=== PATIENT | female | born 1945 | race Caucasian/White ===

== ENCOUNTER 2016-08-20 08:35 | Emergency (ER) | payer MEDICARE, BC ==
[2016-08-20 08:44] VITALS: BP 149/50
[2016-08-20] MEDS ORDERED: Sodium Chloride 0.9% 10 ML Syringe FLUSH PRN (09:05)
--- NOTE | 2016-08-20 09:24 | EDM.PDOC ---
ED HPI GENERAL MEDICAL PROBLEM - General Chief Complaint: Headache Stated Complaint: Head pain Time Seen by Provider: 08/20/16 08:55 Source of Information: Reports: Patient, RN Notes Reviewed History Limitations: Reports: No Limitations - History of Present Illness INITIAL COMMENTS - FREE TEXT/NARRATIVE: 70 year old female presents to the ED today with chief complaint of 3 day history of sharp, stabbing, constant pain to the left parietal region. The pain came on suddenly about 3 days ago and has been constant with episodes of more severe pain. She states "this is not a headache." She's never experienced this type of pain. She does not typically experience headaches. She says there is a bump to the area and it's tender. She's had no falls and or head trauma. She has no neck pain or neck stiffness. She says she just doesn't feel right. She feels off balance. She has a history of glaucoma but denies any acute changes in her vision. No slurred speech, facial droop, confusion, weakness in extremities, numbness, tingling, difficulty walking. No fever but has felt chilled. No dizziness, lightheadedness or syncope. She does report significant fatigue this past week and has had periods of substernal chest heaviness and mild dyspnea with exertion. She says the chest heaviness is associated with the fatigue. The chest pressure does not radiate. She denies history of heart problems or SD. She has never smoked. No lower extremity edema, redness, or calf pain. No cough or pleuritic type chest pain. Reports nausea but no vomiting , diarrhea, or abdominal pain. Left Head Pain Score (Numeric/FACES): 8 - Related Data Allergies Allergy/AdvReac Type Severity Reaction Status Date / Time Sulfa (Sulfonamide Allergy Swelling Verified 08/20/16 08:44 Antibiotics) Home Meds: Home Meds ClonazePAM [KlonoPIN] 0.5 mg PO QAM 05/21/15 [History] DULoxetine HCl [Cymbalta] 120 mg PO DAILY 05/21/15 [History] Multivits-Min/Iron/FA/Lutein [Centrum Silver Women Tablet] 1 tab PO DAILY [History] QUEtiapine Fumarate [Quetiapine Fumarate] 100 mg PO BID 05/21/15 [History] ClonazePAM [KlonoPIN] 1 mg PO BEDTIME 08/13/15 [History] Magnesium Oxide 400 mg PO DAILY #60 tablet 09/22/15 [Rx] Aspirin [Halfprin] 81 mg PO DAILY 03/20/16 [History] Omeprazole Magnesium [Prilosec Otc] 40 mg PO DAILY 03/20/16 [History] Cholecalciferol (Vitamin D3) [Vitamin D3] 1,000 unit PO DAILY 08/20/16 [History] Cyanocobalamin/FA/Pyridoxine [Virt-Jason Tablet] 1 each PO DAILY 08/20/16 [ History] Docusate Sodium [Col-Rite] 250 mg PO DAILY 08/20/16 [History] Past Medical History HEENT History: Reports: Allergic Rhinitis, Glaucoma, Impaired Vision Other HEENT History: wears glasses, dentures Cardiovascular History: Reports: Hypertension, SOB on Exertion Respiratory History: Reports: None, Other (See Below) Other Respiratory History: dypsnea Gastrointestinal History: Reports: GERD, PUD, Other (See Below) Other Gastrointestinal History: GI ulcers Genitourinary History: Reports: Other (See Below) Other Genitourinary History: incomplete emptying of bladder, nocturia, urgency, UTI 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: Other (See Below) Other OB/BYN History: R breast biopsy, hot flashes Musculoskeletal History: Reports: Back Pain, Chronic, Other (See Below) Other Musculoskeletal History: rotator cuff repair, L leg pain, knee pain, hip pain, brachiplasty, arthritis, gluteal tendinopathy, trochanteric bursitis, osteopenia, back surgery with rods Neurological History: Reports: Headaches, Chronic Psychiatric History: Reports: Anxiety, Depression, Panic Attack Other Psychiatric History: fatigue Endocrine/Metabolic History: Reports: Diabetes, Type II Other Endocrine/Metabolic History: resolved with gastric bypass Hematologic History: Reports: None, Blood Transfusion(s) Immunologic History: Reports: None Oncologic (Cancer) History: Reports: None Dermatologic History: Reports: None - Infectious Disease History Infectious Disease History: Reports: None - Past Surgical History GI Surgical History: Reports: Appendectomy, Bariatric Procedure, Cholecystectomy Female Surgical History: Reports: Breast Biopsy, Hysterectomy Neurological Surgical History: Reports: Lumbar Spine Musculoskeletal Surgical History: Reports: Knee Replacement, Shoulder Surgery Social & Family History - Family History Family Medical History: Noncontributory Cardiac: Reports: Bypass Respiratory: Reports: Sleep Apnea Psychiatric: Reports: Depression Endocrine/Metabolic: Reports: Diabetes, type II Oncologic: Reports: Bone, Colon, Lung, Ovarian, Other (See Below) Other Oncologic Family History: mother had colon, ovarian and and bone throat cancer; father had bone cancer and lung - Tobacco Use Smoking Status *Q: Never Smoker Second Hand Smoke Exposure: No - Caffeine Use Caffeine Use: Reports: None - Recreational Drug Use Recreational Drug Use: No - Living Situation & Occupation Living situation: Reports: , with Spouse Occupation: Retired ED ROS GENERAL - Review of Systems Review Of Systems: See Below Constitutional: Reports: Chills, Fatigue. Denies: Fever HEENT: Reports: No Symptoms. Denies: Vertigo, Vision Change Respiratory: Reports: Shortness of Breath (with exertion). Denies: Pleuritic Chest Pain, Cough Cardiovascular: Reports: Chest Pain, Dyspnea on Exertion. Denies: Edema, Lightheadedness, Palpitations, Syncope Endocrine: Reports: Fatigue GI/Abdominal: Reports: Nausea. Denies: Abdominal Pain, Diarrhea, Vomiting : Reports: Other ("strong urine"). Denies: Dysuria, Flank Pain, Frequency, Hematuria Neurological: Reports: Headache. Denies: Confusion, Dizziness, Numbness, Paresthesia, Syncope, Tingling, Trouble Speaking, Difficulty Walking, Weakness - Physical Exam Exam: See Below Exam Limited By: No Limitations General Appearance: Alert, WD/WN, No Apparent Distress, Anxious Eye Exam: Bilateral Eye: EOMI, Normal Inspection, PERRL Ears: Normal External Exam, Normal Canal, Hearing Grossly Normal, Normal TMs Nose: Nasal Flaring Throat/Mouth: Normal Oropharynx Head Exam: Atraumatic, Normocephalic, Other (The patient reports a bump to the left parietal region. There is no bump, swelling, bruising, or lesion noted on exam. The "bump" she is referring to is normal anatomy. There is no tenderness or palpable pulsation to the left baptism.) Neck: Normal Inspection, Supple, Non-Tender, Full Range of Motion, Other (no nuchal rigidity ). No: Tender Midline Respiratory/Chest: No Respiratory Distress, Lungs Clear, Normal Breath Sounds, No Accessory Muscle Use, Chest Non-Tender Cardiovascular: Normal Peripheral Pulses, Regular Rate, Rhythm, No Murmur GI/Abdominal: Normal Bowel Sounds, Soft, Non-Tender Neuro Exam (Abbreviated): Alert, Oriented, CN II-XII Intact, Normal Cognition, Normal Gait, No Motor/Sensory Deficits, Other (cerebellar testing is intact ) Extremities: Normal Inspection, Normal Range of Motion, Non-Tender, No Pedal Edema, Other (no unilateral leg swelling, erythema, or tenderness to the calf). No: Thor's Sign, Leg Pain Psychiatric: Anxious Skin Exam: Warm, Dry, Intact EKG INTERPRETATION EKG Date: 08/20/16 Time: 09:18 Rhythm: NSR Rate (beats/min): 77 [place]: normal P-wave: present QRS: normal ST-T: normal QT: normal EKG Interpretation Comments: EKG reveals NSR 77 bpm, no acute ischemic changes. EKG read by Dr. Balbuena. Course - Vital Signs Last Recorded V/S: Last Vital Signs Temp 96.1 F 08/20/16 08:41 Pulse 95 08/20/16 08:41 Resp 16 08/20/16 08:41 BP 149/50 H 08/20/16 08:41 Pulse Ox 97 08/20/16 08:41 - Orders/Labs/Meds Orders: Active Orders 24 hr Category Date Time Status Cardiac Monitoring [RC] . DIRECTED Care 08/20/16 09:06 Active EKG 12 Lead [EKG Documentation Completion] [RC] STAT Care 08/20/16 09:06 Active Peripheral IV Care [RC] . DIRECTED Care 08/20/16 09:07 Active CXR [Chest 1V Frontal] [CR] Stat Exams 08/20/16 09:06 Taken Peripheral IV Insertion Adult [OM.PC] Stat Oth 08/20/16 09:06 Ordered Labs: Laboratory Tests 08/20/16 08/20/16 08/20/16 Range/Units 09:15 09:15 10:18 WBC 5.62 (3.98-10.04) K/mm3 RBC 4.19 (3.98-5.22) M/mm3 Hgb 10.7 L (11.2-15.7) gm/L Hct 34.7 (34.1-44.9) % MCV 82.8 (79.4-94.8) fl MCH 25.5 L (25.6-32.2) pg MCHC 30.8 L (32.2-35.5) g/dl RDW Std Deviation 48.5 H (36.4-46.3) fL Plt Count 285 (182-369) K/mm3 MPV 10.3 (9.4-12.3) fl Neut % (Auto) 45.7 (34.0-71.1) % Lymph % (Auto) 41.1 (19.3-51.7) % [place] % (Auto) 10.1 (4.7-12.5) % Eos % (Auto) 2.5 (0.7-5.8) Baso % (Auto) 0.4 (0.1-1.2) % Neut # (Auto) 2.57 (1.56-6.13) K/mm3 Lymph # (Auto) 2.31 (1.18-3.74) K/mm3 [place] # (Auto) 0.57 H (0.24-0.36) K/mm3 Eos # (Auto) 0.14 (0.04-0.36) K/mm3 Baso # (Auto) 0.02 (0.01-0.08) K/mm3 Sodium 143 (136-145) mEq/L Potassium 4.7 (3.5-5.1) mEq/L Chloride 108 H (98-107) mEq/L Carbon Dioxide 26 (21-32) mEq/L Anion Gap 13.7 (5-15) BUN 18 (7-18) mg/dL Creatinine 0.9 (0.55-1.02) mg/dL Est Cr Clr Drug Dosing 44.69 mL/min Estimated GFR (MDRD) > 60 (>60) mL/min BUN/Creatinine Ratio 20.0 H (14-18) Glucose 94 (83-115) mg/dL Calcium 9.0 (8.5-10.1) mg/dL Total Bilirubin 0.2 (0.2-1.0) mg/dL AST 25 (15-37) U/L ALT 26 (14-59) U/L Alkaline Phosphatase 76 (46-116) U/L Troponin I < 0.017 (0.00-0.056) ng/mL C-Reactive Protein < 0.2 (<1.0) mg/dL Total Protein 6.8 (6.4-8.2) g/dl Albumin 3.6 (3.4-5.0) g/dl Globulin 3.2 gm/dL Albumin/Globulin Ratio 1.1 (1-2) Urine Color Light yellow (Yellow) Urine Appearance Clear (Clear) Urine pH 6.0 (5.0-8.0) Ur Specific [place] 1.015 (1.005-1.030) Urine Protein Negative (Negative) Urine Glucose (UA) Negative (Negative) Urine Ketones Negative (Negative) Urine Occult Blood Negative (Negative) Urine Nitrite Negative (Negative) Urine Bilirubin Negative (Negative) Urine Urobilinogen 0.2 (0.2-1.0) Ur Leukocyte Esterase Negative (Negative) Urine RBC Not seen (0-5) /hpf Urine WBC 0-5 (0-5) /hpf Ur Epithelial Cells Not Reportable Ur Squamous Epith Cells 0-5 (0-5) /hpf Urine Bacteria Not seen (FEW) /hpf Urine Mucus Not seen (FEW) /hpf Meds: Medications Discontinued Medications Generic Name Dose Route Start Last Admin Trade Name Freq PRN Reason Stop Dose Admin Sodium Chloride 10 ml 08/20/16 09:05 08/20/16 09:19 Saline Flush FLUSH 10 ml ASDIRECTED PRN Administration Keep Vein Open - Re-Assessments/Exams Free Text/Narrative Re-Assessment/Exam: The patient's neuro exam today is completely unremarkable. Head CT was read by Dr. Khan and was positive for minimal senescent change. Nothing acute identified. Her history was most concerning for intracranial hemorrhage and this has been ruled out. History and exam findings are not consistent with a diagnosis of temporal arteritis. CBC, CMP, and CRP are normal. She reported intermittent chest heaviness for the past week therefore a cardiac workup was also ordered. 2 view chest x-ray is normal. Mediastinum and heart size are normal. No pulmonary infiltrates or effusions. Troponin is WNL. EKG was also normal. She reported a history of UTIs and noted that here urine was strong in odor. UA was therefore ordered and was negative for infection. Acute causes of her neuro and cardiovascular complaints have been ruled out. On re-examination. The patient's neuro exam remains intact and she is up ambulating around the room in no apparent distress. I palpable her left parietal area again and there was some tenderness but was then absent with repeat palpation of the same area. She has no lesions or swelling to indicate a soft tissue etiology. Patient thoroughly educated on return precautions. Instructed to f/u with Dr. Ta this week for recheck. Departure - Departure Time of Disposition: 10:55 Disposition: Home, Self-Care 01 Condition: good Clinical Impression: Head pain Qualifiers: Headache type: unspecified Headache chronicity pattern: acute headache Intractability: not intractable Qualified Code(s): R51 - Headache - Discharge Information Instructions: General Headache Without Cause Referrals: Dawson Ta MD [Primary Care Provider] - Forms: ED Department Discharge Additional Instructions: Follow-up with Dr. Ta in 2-3 days for recheck Return to ER if pain worsens or if you develop a new symptoms. Return to ER if your chest heaviness or shortness of breath worsens in anyway Warm compresses to the area of pain Tylenol 1000mg every 8 hours as needed for pain - My Orders Last 24 Hours: My Active Orders 08/20/16 09:06 Cardiac Monitoring [RC] . DIRECTED EKG 12 Lead [EKG Documentation Completion] [RC] STAT CXR [Chest 1V Frontal] [CR] Stat Peripheral IV Insertion Adult [OM.PC] Stat 08/20/16 09:07 Peripheral IV Care [RC] . DIRECTED - Assessment/Plan Last 24 Hours: My Active Orders 08/20/16 09:06 Cardiac Monitoring [RC] . DIRECTED EKG 12 Lead [EKG Documentation Completion] [RC] STAT CXR [Chest 1V Frontal] [CR] Stat Peripheral IV Insertion Adult [OM.PC] Stat 08/20/16 09:07 Peripheral IV Care [RC] . DIRECTED
--- NOTE | 2016-08-20 10:11 | CT ---
Head CT Technique: Multiple axial sections through the brain were obtained. Intravenous contrast was not utilized. Comparison: Previous MRI brain of 08/27/12. Findings: Ventricles along with basal cisterns and sulci over the convexities are mildly prominent. Minimal areas of decreased density are noted within the periventricular white matter. This is felt compatible with minimal small vessel ischemic demyelination change. Incidental basal ganglia calcification is noted. No other abnormal parenchymal densities are seen. No evidence of intracranial hemorrhage. No midline shift or mass effect is seen. Bone window settings were reviewed which shows no discrete calvarial abnormality. Visualized sinuses are clear. Minimal atherosclerotic calcification is noted within the carotid siphon. Impression: 1. Minimal senescent change. Nothing acute is identified on noncontrast head CT study. Diagnostic code #2
--- NOTE | 2016-08-21 07:37 | CR ---
Chest: Portable view of the chest was obtained. Comparison: Previous chest x-ray of 09/21/15. Heart size and mediastinum are normal. Lungs are clear. Previous right shoulder surgery is seen. Bony structures are grossly intact. Impression: 1. Incidental findings. Nothing acute is identified on portable chest x-ray. Diagnostic code #2
== END 2016-08-20 11:05 | disposition home or self-care (01) ==
LOC: JD.ED 08:35
DX: R51 Headache (principal); I10 Essential (primary) hypertension; K21.9 Gastro-esophageal reflux disease without esophagitis; F41.9 Anxiety disorder, unspecified; F32.9 Major depressive disorder, single episode, unspecified; Z90.49 Acquired absence of other specified parts of digestive tract; Z88.2 Allergy status to sulfonamides; Z79.899 Other long term (current) drug therapy; Z79.82 Long term (current) use of aspirin; Z90.710 Acquired absence of both cervix and uterus; Z96.659 Presence of unspecified artificial knee joint
CPT/HCPCS: 36415; 70450; 71010; 80053; 81001; 84484; 85025; 86140; 93005; 99285; J7050; 99283

== ENCOUNTER 2017-02-07 05:19 | Emergency (ER) | payer MEDICARE, BC ==
[2017-02-07 05:38] VITALS: BP 123/59
[2017-02-07] MEDS ORDERED: Phenazopyridine 95 MG Tab PO ONE (05:44)
[2017-02-07] MEDS ORDERED: Levofloxacin 250 MG Tab PO ONE (05:44)
--- NOTE | 2017-02-07 05:48 | EDM.PDOC ---
ED HPI GENERAL MEDICAL PROBLEM - General Chief Complaint: Genitourinary Problem Stated Complaint: UTI Time Seen by Provider: 02/07/17 05:43 Source of Information: Reports: Patient, Family (spouse) History Limitations: Reports: No Limitations - History of Present Illness INITIAL COMMENTS - FREE TEXT/NARRATIVE: 71-year-old female attends the ED with acute onset of urinary tract symptoms such as urgency, frequency and dysuria over the last 24 hours. Patient had left total hip replacement by Dr. lauren done at [place] on January 31. She developed urinary retention requiring Mclean catheter during her stay in hospital. Once we was removed once again she could not void on her own and had to have Mclean catheter reintroduced on intermittent basis. Developed urinary tract symptoms yesterday. Note she just got home from the hospital. Feels hot and cold at times. Not able to sleep at all last night. Has not noticed any blood in her urine. She's had no previous genitourinary surgery. Onset: Sudden Onset Date: 02/06/17 Onset Time: 18:00 Duration: Hour(s): Location: Reports: Abdomen (Lower abdomen), Other (Dysuria urgency and frequency ) Quality: Reports: Ache, Burning, Other Severity: Moderate (Dysuria with voiding particularly at end of voiding.) Improves with: Reports: None Worsens with: Reports: None Context: Reports: Other (Recent left total hip replacement complicated by acute urinary retention requiring Mclean catheter will in hospital). 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 (see below) (None.) - Related Data Allergies Allergy/AdvReac Type Severity Reaction Status Date / Time Sulfa (Sulfonamide Allergy Swelling Verified 02/07/17 05:38 Antibiotics) Home Meds: Home Meds DULoxetine HCl [Cymbalta] 120 mg PO BEDTIME 05/21/15 [History] Multivits-Min/Iron/FA/Lutein [Centrum Silver Women Tablet] 1 tab PO DAILY [History] QUEtiapine Fumarate [Quetiapine Fumarate] 100 mg PO BEDTIME 05/21/15 [History] ClonazePAM [KlonoPIN] 1 mg PO BEDTIME 08/13/15 [History] Aspirin [Halfprin] 325 mg PO BID 03/20/16 [History] Cholecalciferol (Vitamin D3) [Vitamin D3] 2,000 unit PO DAILY 08/20/16 [History] Cyanocobalamin/FA/Pyridoxine [Virt-Jason Tablet] 1 each PO DAILY 08/20/16 [ History] Docusate Sodium [Col-Rite] 200 mg PO BID 08/20/16 [History] Ferrous Sulfate [Iron] 1 tab PO TID 02/07/17 [History] Levofloxacin [Levaquin] 500 mg PO Q24H #7 tablet 02/07/17 [Rx] Magnesium Oxide 400 mg PO BID 02/07/17 [History] Phenazopyridine HCl [Pyridium] 100 mg PO Q6H #4 tablet 02/07/17 [Rx] Potassium Chloride [Klor-Con 10] 10 tab PO DAILY 02/07/17 [History] oxyCODONE 1 tab PO Q4HR PRN 02/07/17 [History] Past Medical History HEENT History: Reports: Allergic Rhinitis, Glaucoma, Impaired Vision Other HEENT History: wears glasses, dentures Cardiovascular History: Reports: Hypertension, SOB on Exertion Respiratory History: Reports: None, Other (See Below) Other Respiratory History: dypsnea Gastrointestinal History: Reports: GERD, PUD, Other (See Below) Other Gastrointestinal History: GI ulcers Genitourinary History: Reports: Other (See Below) Other Genitourinary History: incomplete emptying of bladder, nocturia, urgency, UTI 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 [employer] LAYOUT History: Reports: Other (See Below) Other OB/BYN History: R breast biopsy, hot flashes Musculoskeletal History: Reports: Back Pain, Chronic, Other (See Below) Other Musculoskeletal History: rotator cuff repair, L leg pain, knee pain, hip pain, brachiplasty, arthritis, gluteal tendinopathy, trochanteric bursitis, osteopenia, back surgery with rods left total hip replacement January 31 Neurological History: Reports: Headaches, Chronic Psychiatric History: Reports: Anxiety, Depression, Panic Attack Other Psychiatric History: fatigue Endocrine/Metabolic History: Reports: Diabetes, Type II Other Endocrine/Metabolic History: resolved with gastric bypass Hematologic History: Reports: None, Blood Transfusion(s) Immunologic History: Reports: None Oncologic (Cancer) History: Reports: None Dermatologic History: Reports: None - Infectious Disease History Infectious Disease History: Reports: None - Past Surgical History GI Surgical History: Reports: Appendectomy, Bariatric Procedure, Cholecystectomy Female Surgical History: Reports: Breast Biopsy, Hysterectomy Neurological Surgical History: Reports: Lumbar Spine Musculoskeletal Surgical History: Reports: Knee Replacement, Shoulder Surgery Social & Family History - Family History Family Medical History: Noncontributory Cardiac: Reports: Bypass Respiratory: Reports: Sleep Apnea Psychiatric: Reports: Depression Endocrine/Metabolic: Reports: Diabetes, type II Oncologic: Reports: Bone, Colon, Lung, Ovarian, Other (See Below) Other Oncologic Family History: mother had colon, ovarian and and bone throat cancer; father had bone cancer and lung - Tobacco Use Smoking Status *Q: Never Smoker Second Hand Smoke Exposure: No - Caffeine Use Caffeine Use: Reports: None - Recreational Drug Use Recreational Drug Use: No - Living Situation & Occupation Living situation: Reports: , with Spouse Occupation: Retired ED ROS GENERAL - Review of Systems Review Of Systems: See Below Constitutional: Reports: Chills, Malaise, Weakness, Fatigue, Decreased Appetite , Weight Loss. Denies: Fever HEENT: Reports: Glasses Respiratory: Reports: No Symptoms Cardiovascular: Reports: No Symptoms Endocrine: Reports: Fatigue GI/Abdominal: Reports: Abdominal Pain (Mild suprapubic abdominal pressure discomfort.) : Reports: Dysuria, Frequency, Incontinence, Urgency, Urinary Retention ( While in hospital post total hip replacement). Denies: Flank Pain Musculoskeletal: Reports: Joint Pain (Left hip pain is quite severe over the last 24 hours even pain pill doesn't seem to help much.) Skin: Reports: Pallor Neurological: Reports: No Symptoms Psychiatric: Reports: No Symptoms Hematologic/Lymphatic: Reports: No Symptoms Immunologic: Reports: No Symptoms ED EXAM, RENAL/ - Physical Exam Exam: See Below Exam Limited By: No Limitations General Appearance: Alert, WD/WN, Other (Appears tired and slightly pallid.) Eye Exam: Bilateral Eye: Normal Inspection GI/Abdominal: Normal Bowel Sounds, Soft, Non-Tender, No Organomegaly Back Exam: Normal Inspection, Full Range of Motion. No: CVA Tenderness (L), CVA Tenderness (R) Extremities: Other (Left hip is been repaired from a posterior approach. The wound itself looks to be healing satisfactorily with no signs of infection lilliam are still in place.) Neurological: Alert, Oriented, CN II-XII Intact, Normal Cognition Psychiatric: Normal Affect Skin Exam: Warm, Dry, Intact, Pallor (Mild pallor.) Course - Vital Signs Last Recorded V/S: Last Vital Signs Temp 35.9 C 02/07/17 05:28 Pulse 77 02/07/17 05:28 Resp 18 02/07/17 05:28 BP 123/59 L 02/07/17 05:28 Pulse Ox 96 02/07/17 05:28 - Orders/Labs/Meds Labs: Laboratory Tests 02/07/17 Range/Units 05:40 Urine Color Yellow (Yellow) Urine Appearance Clear (Clear) Urine pH 7.0 (5.0-8.0) Ur Specific [place] 1.015 (1.005-1.030) Urine Protein Negative (Negative) Urine Glucose (UA) Negative (Negative) Urine Ketones Negative (Negative) Urine Occult Blood Negative (Negative) Urine Nitrite Negative (Negative) Urine Bilirubin Negative (Negative) Urine Urobilinogen 0.2 (0.2-1.0) Ur Leukocyte Esterase Negative (Negative) Urine RBC Not seen (0-5) /hpf Urine WBC 0-5 (0-5) /hpf Ur Epithelial Cells 0-5 (0-5) /hpf Urine Bacteria Not seen (FEW) /hpf Urine Mucus Not seen (FEW) /hpf Meds: Medications Discontinued Medications Generic Name Dose Route Start Last Admin Trade Name Freq PRN Reason Stop Dose Admin Levofloxacin 500 mg 02/07/17 05:44 02/07/17 05:56 Levaquin PO 02/07/17 05:45 500 mg ONETIME ONE Administration Phenazopyridine HCl 95 mg 02/07/17 05:44 02/07/17 05:56 Urinary Pain Relief PO 02/07/17 05:45 95 mg ONETIME ONE Administration - Radiology Interpretation Free Text/Narrative:: 71-year-old female presents the ED with acute urinary tract symptoms of infection. Dysuria urgency and frequency for the last 24 hours. She recently underwent left total hip replacement in [place] by Dr. lauren and surgery was complicated by acute urinary retention. She'll fully catheter placed for several days and then when it was removed she couldn't void again and had to have intermittent catheterization until time of discharge. That was only 2 days ago. She presents today with acute urinary tract signs symptoms of infection. Plan urinalysis and urine for culture. We'll start her Levaquin 500 mg per ora and iridium 95 mg by mouth as well. - Re-Assessments/Exams Free Text/Narrative Re-Assessment/Exam: 02/07/17 07:10: Urinalysis has returned as normal. This is highly suspect as the patient has voided 5 times since she's been in the ED. She at least has a urethritis which might not be showing up on the dip. I will culture the urine. I treated her as if she has a urinary tract infection with Levaquin 500 mg once daily for another 7 days and Pyridium 100 mg every 6 hours 4 consecutive doses to alleviate the dysuria. Follow-up if not markedly improved in 12-24 hours time. Departure - Departure Time of Disposition: 06:52 Disposition: Home, Self-Care 01 Condition: Fair Clinical Impression: UTI, Urinary tract infectious disease, Urethritis - Discharge Information Prescriptions: Levofloxacin [Levaquin] 500 mg PO Q24H #7 tablet Phenazopyridine HCl [Pyridium] 100 mg PO Q6H #4 tablet Instructions: Urinary Tract Infection, Adult Referrals: Dawson Ta MD [Primary Care Provider] - Forms: ED Department Discharge Additional Instructions: Evaluation the emergency room today in regards to acute onset of urinary tract symptoms with urgency frequency and dysuria. Urinalysis revealed evidence of an infective process. This appears to be secondary to requirement of catheterization after having left total hip replacement on 31 January. Treatment was started in the ED with Levaquin 500 mg by mouth. He'll need to continue this same type of medication once daily for another 7 days starting tomorrow morning. Initial dose of Pyridium was given in the ED and you need to fill prescription for this medication to take one tablet every 6 hours for the next 24 hours to alleviate symptoms of urinary tract infection. Follow-up with personal physician or return to the ED if not markedly improved in 36 hours time.
== END 2017-02-07 07:19 | disposition home or self-care (01) ==
LOC: JD.ED 05:19
DX: N34.2 Other urethritis (principal); E11.9 Type 2 diabetes mellitus without complications; I10 Essential (primary) hypertension; F41.0 Panic disorder [episodic paroxysmal anxiety]; F32.9 Major depressive disorder, single episode, unspecified; Z79.82 Long term (current) use of aspirin; Z79.899 Other long term (current) drug therapy; Z88.2 Allergy status to sulfonamides
CPT/HCPCS: 51798; 81001; 87086; 99283; A9270

== ENCOUNTER 2017-04-24 10:09 | Emergency (ER) | payer MEDICARE, BC ==
[2017-04-24 10:25] VITALS: BP 144/67
[2017-04-24] MEDS ORDERED: Sodium Chloride 0.9% 10 ML Syringe FLUSH PRN (11:17)
[2017-04-24] MEDS ORDERED: Ondansetron 4 MG/2 ML SDV IVPUSH ONE (11:21)
[2017-04-24] MEDS ORDERED: Sodium Chloride 0.9% 1,000 ML IV SCH (11:30)
--- NOTE | 2017-04-24 11:44 | EDM.PDOC ---
ED HPI GENERAL MEDICAL PROBLEM - General Chief Complaint: Abdominal Pain Stated Complaint: ABDOMINAL PAIN Time Seen by Provider: 04/24/17 11:07 Source of Information: Reports: Patient, RN Notes Reviewed - History of Present Illness INITIAL COMMENTS - FREE TEXT/NARRATIVE: 71 year old female comes in with Abd pain of about 2 weeks duration. Pain is worse after eating or drinking, upper abd, radiates to R flank. She has had some trouble with constipation but did have a good BM 3 days ago, no much since. No fever or chills. Pain at times radiates up to L chest. Hx of GB surgery may yrs ago. Has lost about 12 lbs of weight. The pain does come and go , very bad all night and earlier this morning, now somewhat better at this time. Has not eaten since last evening. Right Upper Abdominal Pain Score (Numeric/FACES): 5 - Related Data Allergies Allergy/AdvReac Type Severity Reaction Status Date / Time Sulfa (Sulfonamide Allergy Swelling Verified 04/24/17 10:25 Antibiotics) Home Meds: Home Meds DULoxetine HCl [Cymbalta] 120 mg PO BEDTIME 05/21/15 [History] Multivits-Min/Iron/FA/Lutein [Centrum Silver Women Tablet] 1 tab PO DAILY [History] QUEtiapine Fumarate [Quetiapine Fumarate] 100 mg PO BEDTIME 05/21/15 [History] ClonazePAM [KlonoPIN] 1 mg PO BEDTIME 08/13/15 [History] Aspirin [Halfprin] 325 mg PO BID 03/20/16 [History] Cholecalciferol (Vitamin D3) [Vitamin D3] 2,000 unit PO BID 08/20/16 [History] Docusate Sodium [Col-Rite] 100 mg PO BID 08/20/16 [History] Magnesium Oxide 400 mg PO DAILY 02/07/17 [History] Potassium Chloride [Klor-Con 10] 10 tab PO DAILY 02/07/17 [History] Denosumab [Prolia] 60 mg SUBCUT ASDIRECTED 04/24/17 [History] Ondansetron [Zofran ODT] 4 mg PO Q6H PRN #10 tab.dis 04/24/17 [Rx] Potassium Chloride 10 meq PO DAILY 04/24/17 [History] Past Medical History HEENT History: Reports: Allergic Rhinitis, Glaucoma, Impaired Vision Other HEENT History: wears glasses, dentures Cardiovascular History: Reports: Hypertension, SOB on Exertion Respiratory History: Reports: None, Other (See Below) Other Respiratory History: dypsnea Gastrointestinal History: Reports: GERD, PUD, Other (See Below) Other Gastrointestinal History: GI ulcers Genitourinary History: Reports: Other (See Below) Other Genitourinary History: incomplete emptying of bladder, nocturia, urgency, UTI 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 (See Below) Other OB/BYN History: R breast biopsy, hot flashes Musculoskeletal History: Reports: Back Pain, Chronic, Other (See Below) Other Musculoskeletal History: rotator cuff repair, L leg pain, knee pain, hip pain, brachiplasty, arthritis, gluteal tendinopathy, trochanteric bursitis, osteopenia, back surgery with rods left total hip replacement January 31 Neurological History: Reports: Headaches, Chronic Psychiatric History: Reports: Anxiety, Depression, Panic Attack Other Psychiatric History: fatigue Endocrine/Metabolic History: Reports: Diabetes, Type II Other Endocrine/Metabolic History: resolved with gastric bypass Hematologic History: Reports: None, Blood Transfusion(s) Immunologic History: Reports: None Oncologic (Cancer) History: Reports: None Dermatologic History: Reports: None - Infectious Disease History Infectious Disease History: Reports: None - Past Surgical History GI Surgical History: Reports: Appendectomy, Bariatric Procedure, Cholecystectomy Female Surgical History: Reports: Breast Biopsy, Hysterectomy Neurological Surgical History: Reports: Lumbar Spine Musculoskeletal Surgical History: Reports: Knee Replacement, Shoulder Surgery Social & Family History - Family History Family Medical History: Noncontributory Cardiac: Reports: Bypass Respiratory: Reports: Sleep Apnea Psychiatric: Reports: Depression Endocrine/Metabolic: Reports: Diabetes, type II Oncologic: Reports: Bone, Colon, Lung, Ovarian, Other (See Below) Other Oncologic Family History: mother had colon, ovarian and and bone throat cancer; father had bone cancer and lung - Tobacco Use Smoking Status *Q: Never Smoker Second Hand Smoke Exposure: No - Caffeine Use Caffeine Use: Reports: Coffee - Recreational Drug Use Recreational Drug Use: No - Living Situation & Occupation Living situation: Reports: , with Spouse Occupation: Retired ED ROS GENERAL - Review of Systems Review Of Systems: See Below Constitutional: Denies: Fever, Chills, Diaphoresis HEENT: Denies: Throat Pain Respiratory: Denies: Shortness of Breath, Pleuritic Chest Pain Cardiovascular: Reports: Chest Pain GI/Abdominal: Reports: Abdominal Pain, Constipation, Nausea, Vomiting. Denies: Diarrhea : Reports: No Symptoms Musculoskeletal: Denies: Back Pain, Joint Pain Skin: Reports: No Symptoms Neurological: Reports: No Symptoms ED EXAM, GI/ABD - Physical Exam Exam: See Below General Appearance: Alert, No Apparent Distress Eyes: Bilateral: Normal Appearance Throat/Mouth: Normal Inspection, Normal Oropharynx Head: No: Facial Swelling Neck: Supple, Full Range of Motion Respiratory/Chest: No Respiratory Distress, Lungs Clear, Normal Breath Sounds Cardiovascular: Regular Rate, Rhythm GI/Abdominal Exam: Tender (upper mid abd). No: Guarding, Rebound Back Exam: No: CVA Tenderness (L), CVA Tenderness (R) Neurological: Alert, Oriented, No Motor/Sensory Deficits Skin Exam: Warm, Dry, Normal Color Course - Vital Signs Last Recorded V/S: Last Vital Signs Temp 97.9 F 04/24/17 10:20 Pulse 93 04/24/17 10:20 Resp 16 04/24/17 10:20 BP 144/67 H 04/24/17 10:20 Pulse Ox 97 04/24/17 10:20 - Orders/Labs/Meds Orders: Active Orders 24 hr Category Date Time Status Peripheral IV Care [RC] . DIRECTED Care 04/24/17 11:18 Active Peripheral IV Insertion Adult [OM.PC] Stat Oth 04/24/17 11:17 Ordered Labs: Laboratory Tests 04/24/17 04/24/17 04/24/17 Range/Units 10:40 10:40 10:40 WBC 7.39 (3.98-10.04) K/mm3 RBC 4.55 (3.98-5.22) M/mm3 Hgb 13.6 (11.2-15.7) gm/L Hct 41.1 (34.1-44.9) % MCV 90.3 (79.4-94.8) fl MCH 29.9 (25.6-32.2) pg MCHC 33.1 (32.2-35.5) g/dl RDW Std Deviation 53.3 H (36.4-46.3) fL Plt Count 245 (182-369) K/mm3 MPV 10.5 (9.4-12.3) fl Neut % (Auto) 55.3 (34.0-71.1) % Lymph % (Auto) 33.3 (19.3-51.7) % Swisher % (Auto) 9.3 (4.7-12.5) % Eos % (Auto) 1.4 (0.7-5.8) Baso % (Auto) 0.4 (0.1-1.2) % Neut # (Auto) 4.09 (1.56-6.13) K/mm3 Lymph # (Auto) 2.46 (1.18-3.74) K/mm3 Swisher # (Auto) 0.69 H (0.24-0.36) K/mm3 Eos # (Auto) 0.10 (0.04-0.36) K/mm3 Baso # (Auto) 0.03 (0.01-0.08) K/mm3 Sodium 141 (136-145) mEq/L Potassium 4.2 (3.5-5.1) mEq/L Chloride 107 (98-107) mEq/L Carbon Dioxide 26 (21-32) mEq/L Anion Gap 12.2 (5-15) BUN 15 (7-18) mg/dL Creatinine 0.7 (0.55-1.02) mg/dL Est Cr Clr Drug Dosing 51.41 mL/min Estimated GFR (MDRD) > 60 (>60) mL/min BUN/Creatinine Ratio 21.4 H (14-18) Glucose 104 (83-115) mg/dL Calcium 9.6 (8.5-10.1) mg/dL Total Bilirubin 0.3 (0.2-1.0) mg/dL AST 25 (15-37) U/L ALT 30 (14-59) U/L Alkaline Phosphatase 110 (46-116) U/L C-Reactive Protein 0.5 (<1.0) mg/dL Total Protein 7.2 (6.4-8.2) g/dl Albumin 3.7 (3.4-5.0) g/dl Globulin 3.5 gm/dL Albumin/Globulin Ratio 1.1 (1-2) Lipase 187 (73-393) U/L Meds: Medications Discontinued Medications Generic Name Dose Route Start Last Admin Trade Name Freq PRN Reason Stop Dose Admin Diatrizoate Meglum/Diatrizoate Sod 90 ml 04/24/17 12:55 04/24/17 13:09 Gastrografin 37% PO 04/24/17 12:56 90 ml ONETIME ONE Administration Sodium Chloride 1,000 mls @ 999 mls/hr 04/24/17 11:30 04/24/17 11:28 Normal Saline IV 999 mls/hr ONETIME SORAYA Administration Iopamidol 100 ml 04/24/17 12:55 04/24/17 13:09 Isovue-300 (61%) IVPUSH 04/24/17 12:56 100 ml ONETIME ONE Administration Ondansetron HCl 4 mg 04/24/17 11:21 04/24/17 11:29 Zofran IVPUSH 04/24/17 11:22 4 mg ONETIME ONE Administration Sodium Chloride 10 ml 04/24/17 11:17 04/24/17 11:30 Saline Flush FLUSH 10 ml ASDIRECTED PRN Administration Keep Vein Open Sodium Chloride 10 ml 04/24/17 12:55 04/24/17 13:09 Saline Flush FLUSH 04/24/17 12:56 10 ml ONETIME ONE Administration - Re-Assessments/Exams Free Text/Narrative Re-Assessment/Exam: 04/24/17 14:19 resting comfortably, WBC, other labs normal, Flat and upright is OK, mildly generous stool pattern in colon, no air fluid levels. CT of Abd and pelvis does not show acute abnormality. Departure - Departure Time of Disposition: 14:24 Disposition: Home, Self-Care 01 Condition: Fair Clinical Impression: Abdominal pain Qualifiers: Abdominal location: epigastric Qualified Code(s): R10.13 - Epigastric pain Vomiting Qualifiers: Vomiting type: unspecified Vomiting Intractability: non-intractable Nausea presence: with nausea Qualified Code(s): R11.2 - Nausea with vomiting, unspecified - Discharge Information Prescriptions: Ondansetron [Zofran ODT] 4 mg PO Q6H PRN #10 tab.dis PRN Reason: Nausea/Vomiting Instructions: Abdominal Pain, Adult, Nausea and Vomiting, Adult, [id number] Referrals: Dawson Ta MD [Primary Care Provider] - Forms: ED Department Discharge Additional Instructions: clear liquids until this evening, than very careful bland for the next 3 days or until symptoms resolving. Stool softner once or twice daily. Miralax once daily if going more than 1 day without a BM. Avoid milk and all dairy products for the next 3 days. Probiotic twice daily, available OTC. See Dr Ta Sunday as planned. - My Orders Last 24 Hours: My Active Orders 04/24/17 11:17 Peripheral IV Insertion Adult [OM.PC] Stat 04/24/17 11:18 Peripheral IV Care [RC] . DIRECTED - Assessment/Plan Last 24 Hours: My Active Orders 04/24/17 11:17 Peripheral IV Insertion Adult [OM.PC] Stat 04/24/17 11:18 Peripheral IV Care [RC] . DIRECTED
[2017-04-24] MEDS ORDERED: Iopamidol 612 MG/ML 100 ML Bottle IVPUSH ONE (12:55)
[2017-04-24] MEDS ORDERED: Diatrizoate Meglumine/Diatrizoate Sodium 37% 120 ML Bottle PO ONE (12:55)
[2017-04-24] MEDS ORDERED: Sodium Chloride 0.9% 10 ML Syringe FLUSH ONE (12:55)
--- NOTE | 2017-04-24 12:58 | CR ---
Abdomen: Supine and upright the abdomen were obtained. Comparison: Prior abdominal x-ray of 09/21/15. Previous pelvic surgery and lower lumbar spine surgery is noted. Left hip prosthesis is noted. Bowel gas pattern is felt to be within normal limits. Surgical clip is noted within the left abdomen as well as surgical anastomotic sutures within the upper abdomen. Calcifications within the pelvis are likely due to phleboliths. Impression: 1. Incidental findings as noted above. Diagnostic code #2
--- NOTE | 2017-04-24 13:41 | CT ---
CT abdomen and pelvis Technique: Multiple axial sections were obtained from above the dome of the diaphragm inferiorly through the pubic symphysis. Intravenous and oral contrast was utilized. Delayed images were obtained through the bladder. Comparison: Previous CT abdomen and pelvis exam of 09/22/15 is available. Findings: Visualized lung bases shows nothing acute. Liver shows no focal parenchymal abnormality. Spleen appears within normal limits. Previous stomach surgery is noted. Pancreas is within normal limits. Adrenal glands show no nodule. Kidneys show symmetric contrast enhancement without hydronephrosis or mass. Aorta shows atherosclerotic change without aneurysmal dilatation. No retroperitoneal adenopathy or mesenteric abnormalities are seen. Artifact is noted within the pelvis from left hip prosthesis as well as screws crossing the left SI joint. No discrete pelvic mass or adenopathy is seen. Mild diverticulosis is noted within portions of the descending and sigmoid colon. No inflammatory change is seen. No free fluid is identified. Degenerative change and scoliosis is noted within the spine as well as previous surgery. Delayed images shows contrast within the distal ureters and within the bladder. Impression: 1. Incidental findings. Nothing acute is appreciated on CT study of the abdomen and pelvis. Diagnostic code #2
== END 2017-04-24 14:45 | disposition home or self-care (01) ==
LOC: JD.ED 10:09
DX: R10.13 Epigastric pain (principal); R11.2 Nausea with vomiting, unspecified; I10 Essential (primary) hypertension; E11.9 Type 2 diabetes mellitus without complications; Z88.2 Allergy status to sulfonamides; Z79.899 Other long term (current) drug therapy; Z79.82 Long term (current) use of aspirin
CPT/HCPCS: 36415; 74019; 74177; 80053; 83690; 85025; 86140; 96361; 96374; 99285; J2405; J7040; J7050; Q9963; Q9967; 99284

== ENCOUNTER 2018-05-10 06:01 | Emergency (ER) | payer MEDICARE, BC ==
[2018-05-10 06:13] VITALS: BP 133/69
--- NOTE | 2018-05-10 06:26 | EDM.PDOC ---
<SouravJasiel garvin Bahman - Last Filed: 05/10/18 07:34> ED HPI GENERAL MEDICAL PROBLEM - General Chief Complaint: Abdominal Pain Stated Complaint: ABDOMINAL PAIN Time Seen by Provider: 05/10/18 06:26 - History of Present Illness INITIAL COMMENTS - FREE TEXT/NARRATIVE: 72-year-old female presents emergency room with abdominal pain. This pain has been going on for a couple of weeks now progressively getting worse it comes and goes. She describes it as in her upper abdomen and then radiates up the center of her chest and it is a burning type sensation. She does not have any nausea vomiting she has chronic constipation. She was seen in the clinic a couple of days ago and her urine looked okay. She can't think of anything that makes it better or worse. Right Lower Abdomen Pain Score (Numeric/FACES): 5 - Related Data Allergies Allergy/AdvReac Type Severity Reaction Status Date / Time Sulfa (Sulfonamide Allergy Swelling Verified 03/14/18 06:02 Antibiotics) Home Meds: Home Meds DULoxetine HCl [Cymbalta] 120 mg PO BEDTIME 05/21/15 [History] QUEtiapine Fumarate [Quetiapine Fumarate] 100 mg PO BEDTIME 05/21/15 [History] ClonazePAM [KlonoPIN] 1 mg PO BEDTIME 08/13/15 [History] Aspirin [Halfprin] 325 mg PO BID 03/20/16 [History] Cholecalciferol (Vitamin D3) [Vitamin D3] 2,000 unit PO BID 08/20/16 [History] Potassium Chloride [Klor-Con 10] 10 meq PO DAILY 02/07/17 [History] Denosumab [Prolia] 60 mg SUBCUT ASDIRECTED 04/24/17 [History] Acetaminophen [Acetaminophen Extra Strength] 500 mg PO Q4H PRN 05/10/18 [History ] Cyanocobalamin/FA/Pyridoxine [Virt-Jason Tablet] 1 tab PO DAILY 05/10/18 [History ] Gabapentin [Neurontin] 300 mg PO BEDTIME 05/10/18 [History] Levofloxacin [Levaquin] 500 mg PO DAILY #10 tablet 05/10/18 [Rx] Magnesium Oxide [Magnesium] 400 mg PO DAILY #30 capsule 05/10/18 [Rx] Polyethylene Glycol 3350 [MiraLAX] 17 gm PO BID 05/10/18 [History] Sennosides [Laxative] 15 mg PO BID 05/10/18 [History] Past Medical History HEENT History: Reports: Allergic Rhinitis, Glaucoma, Impaired Vision Other HEENT History: wears glasses, dentures Cardiovascular History: Reports: Hypertension, SOB on Exertion Respiratory History: Reports: Other (See Below) Other Respiratory History: dypsnea Gastrointestinal History: Reports: Chronic Constipation, GERD, PUD, Other (See Below) Other Gastrointestinal History: GI ulcers Genitourinary History: Reports: Other (See Below) Other Genitourinary History: incomplete emptying of bladder, nocturia, urgency, UTI 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 (See Below) Other WOOD TOOL MAKER History: R breast biopsy, hot flashes Musculoskeletal History: Reports: Back Pain, Chronic, Other (See Below) Other Musculoskeletal History: rotator cuff repair, L leg pain, knee pain, hip pain, brachiplasty, arthritis, gluteal tendinopathy, trochanteric bursitis, osteopenia, back surgery with rods left total hip replacement January 31 Neurological History: Reports: Headaches, Chronic Psychiatric History: Reports: Anxiety, Depression, Panic Attack Other Psychiatric History: fatigue Endocrine/Metabolic History: Reports: Diabetes, Type II Other Endocrine/Metabolic History: resolved with gastric bypass Hematologic History: Reports: None, Blood Transfusion(s) Immunologic History: Reports: None Oncologic (Cancer) History: Reports: None Dermatologic History: Reports: None - Infectious Disease History Infectious Disease History: Reports: None - Past Surgical History GI Surgical History: Reports: Appendectomy, Bariatric Procedure, Cholecystectomy Female Surgical History: Reports: Breast Biopsy, Hysterectomy Neurological Surgical History: Reports: Lumbar Spine Musculoskeletal Surgical History: Reports: Knee Replacement, Shoulder Surgery Social & Family History - Family History Family Medical History: Noncontributory Cardiac: Reports: Bypass Respiratory: Reports: Sleep Apnea Psychiatric: Reports: Depression Endocrine/Metabolic: Reports: Diabetes, type II Oncologic: Reports: Bone, Colon, Lung, Ovarian, Other (See Below) Other Oncologic Family History: mother had colon, ovarian and and bone throat cancer; father had bone cancer and lung - Caffeine Use Caffeine Use: Reports: None - Living Situation & Occupation Living situation: Reports: , with Spouse Occupation: Retired ED ROS GENERAL - Review of Systems Review Of Systems: See Below Constitutional: Reports: No Symptoms HEENT: Reports: No Symptoms Respiratory: Reports: No Symptoms Cardiovascular: Reports: No Symptoms. Denies: Chest Pain Endocrine: Reports: No Symptoms GI/Abdominal: Reports: Abdominal Pain, Constipation. Denies: Diarrhea, Nausea, Vomiting : Reports: No Symptoms Neurological: Reports: No Symptoms ED EXAM, GI/ABD - Physical Exam Exam: See Below Exam Limited By: No Limitations General Appearance: Alert, No Apparent Distress Head: Atraumatic, Normocephalic Neck: Normal Inspection, Supple, Non-Tender, Full Range of Motion Respiratory/Chest: No Respiratory Distress, Lungs Clear, Normal Breath Sounds Cardiovascular: Regular Rate, Rhythm, No Edema, No Murmur GI/Abdominal Exam: Normal Bowel Sounds, Soft, Other (Surgical changes noted from prior gastric bypass followed up with her typical revision after significant weight loss. She has active bowel sounds abdomen is soft she has epigastric discomfort that mimics her chief complaint.) Course - Vital Signs Last Recorded V/S: Last Vital Signs Temp 36.4 C 05/10/18 06:10 Pulse 91 05/10/18 06:10 Resp 18 05/10/18 06:10 BP 133/69 05/10/18 06:10 Pulse Ox 98 05/10/18 06:10 - Orders/Labs/Meds Orders: Active Orders 24 hr Category Date Time Status Abdomen 1V Flat [CR] Stat Exams 05/10/18 07:19 Taken Labs: Laboratory Tests 05/10/18 05/10/18 05/10/18 Range/Units 07:01 07:01 07:35 WBC 8.36 (3.98-10.04) K/mm3 RBC 4.40 (3.98-5.22) M/mm3 Hgb 13.5 (11.2-15.7) gm/L Hct 42.2 (34.1-44.9) % MCV 95.9 H (79.4-94.8) fl MCH 30.7 (25.6-32.2) pg MCHC 32.0 L (32.2-35.5) g/dl RDW Std Deviation 48.1 H (36.4-46.3) fL Plt Count 237 (182-369) K/mm3 MPV 9.4 (9.4-12.3) fl Neutrophils % (Manual) 52 (40-60) % Band Neutrophils % 0 (0-10) % Lymphocytes % (Manual) 37 (20-40) % Atypical Lymphs % 0 % Monocytes % (Manual) 9 (2-10) % Eosinophils % (Manual) 1 (0.7-5.8) % Basophils % (Manual) 1 (0.1-1.2) Platelet Estimate Adequate Plt Morphology Comment Normal RBC Morph Comment Normal Sodium 142 (136-145) mEq/L Potassium 4.3 (3.5-5.1) mEq/L Chloride 106 (98-107) mEq/L Carbon Dioxide 28 (21-32) mEq/L Anion Gap 12.3 (5-15) BUN 16 (7-18) mg/dL Creatinine 0.8 (0.55-1.02) mg/dL Est Cr Clr Drug Dosing 44.31 mL/min Estimated GFR (MDRD) > 60 (>60) mL/min BUN/Creatinine Ratio 20.0 H (14-18) Glucose 102 (83-115) mg/dL Calcium 8.7 (8.5-10.1) mg/dL Total Bilirubin 0.3 (0.2-1.0) mg/dL AST 19 (15-37) U/L ALT 27 (14-59) U/L Alkaline Phosphatase 85 (46-116) U/L Total Protein 6.5 (6.4-8.2) g/dl Albumin 3.1 L (3.4-5.0) g/dl Globulin 3.4 gm/dL Albumin/Globulin Ratio 0.9 L (1-2) Lipase 137 (73-393) U/L Urine Color Light yellow (Yellow) Urine Appearance Clear (Clear) Urine pH 7.0 (5.0-8.0) Ur Specific [place] 1.020 (1.005-1.030) Urine Protein Trace H (Negative) Urine Glucose (UA) Negative (Negative) Urine Ketones Negative (Negative) Urine Occult Blood Negative (Negative) Urine Nitrite Negative (Negative) Urine Bilirubin Negative (Negative) Urine Urobilinogen 1.0 (0.2-1.0) Ur Leukocyte Esterase 2+ H (Negative) Urine RBC 0-5 (0-5) /hpf Urine WBC 20-30 H (0-5) /hpf Ur Epithelial Cells 20-30 H (0-5) /hpf Urine Bacteria Many H (FEW) /hpf Urine Mucus Not seen (FEW) /hpf Meds: Medications Discontinued Medications Generic Name Dose Route Start Last Admin Trade Name Adam PRN Reason Stop Dose Admin Al Hydroxide/Mg Hydroxide 30 0 ml 05/10/18 06:40 05/10/18 06:48 ml/ Lidocaine HCl 15 ml PO 05/10/18 06:41 45 ml ONETIME ONE Administration Magnesium Citrate 296 ml 05/10/18 08:03 Citrate Of Magnesia PO 05/10/18 08:04 ONETIME ONE - Re-Assessments/Exams Free Text/Narrative Re-Assessment/Exam: 05/10/18 07:34 Change of shift, further care and disposition per Dr. Verduzco Departure - Departure Disposition: Home, Self-Care 01 Clinical Impression: Constipation by delayed colonic transit, Recurrent urinary tract infection Abdominal pain Qualifiers: Abdominal location: epigastric Qualified Code(s): R10.13 - Epigastric pain - Discharge Information Prescriptions: Levofloxacin [Levaquin] 500 mg PO DAILY #10 tablet Magnesium Oxide [Magnesium] 400 mg PO DAILY #30 capsule Referrals: Bella Blum MD [Primary Care Provider] - Forms: ED Department Discharge Additional Instructions: Evaluation the emergency room today due to recurrent abdominal pain particularly in the left lower quadrant of the abdomen December the last several days. Lab tests proved to be completely normal urinalysis however does show still a infective process or recurrent process which may be secondary to the constipation however last treatment was with Macrobid in the organism was resistant to this medication. Suggest treatment with Levaquin 500 mg once daily for the next 10 days to clear up urinary tract infection. X-ray of the abdomen confirms constipation with a large amount of the recently drank oral contrast remaining within the bowel. This involves both the right and left hemicolon's and the transverse colon which runs across the upper mid abdomen. This is likely the cause of your abdominal pain. Treatment is magnesium citrate or Citroma 10 ounces this morning mixed with 6 ounces of juice of choice taken by mouth once. This usually will start to work in 1-2 hours and the bowels often move 2-4 times. Continue MiraLAX powder 17 g or 1 scoop twice daily and I'm going to add a tablet of a museum oxalate 400 mg once daily to be taken to help the bowels move regularly as well. The magnesium tablet cannot be taken within 2 hours of taking the gabapentin tablet. Therefore I would suggest taking it first thing in the morning as you gabapentin is dosed at bedtime. Expect marked improvement of once bowels were cleansed with relief of abdominal pain. Suggest follow-up urinalysis in the clinic a week after you have finished your Levaquin antibiotics to make sure the infection has been completely eradicated - My Orders Last 24 Hours: My Active Orders 05/10/18 07:19 Abdomen 1V Flat [CR] Stat - Assessment/Plan Last 24 Hours: My Active Orders 05/10/18 07:19 Abdomen 1V Flat [CR] Stat <LubaChris curran - Last Filed: 05/10/18 08:28> Course - Re-Assessments/Exams Free Text/Narrative Re-Assessment/Exam: 05/10/18 07:43 Ban has been assumed from Dr. Pérez at change of shift. I did order an abdominal x-ray which confirms constipation with a large amount of stool throughout the ascending transverse colon and parts of the descending colon it still contain contrast media from last CT. This is compatible with significant constipation. Labs are also now back. Labs reveal a normal white count at 8.36 with 52% neutrophils and no band cells reported. Hemoglobin is 13.5 with hematocrit of 42.2. MCV is mildly elevated at 95.9. Platelet count is 237,000. Sodium 142 with a potassium of 4.3. Chloride 106 with a bicarbonate 28. And a gap is 12.3. BUN is 16 with a creatinine of 0.8. GFR is greater than 60. Glucose 102. Calcium is 8.7. Liver function is normal. Total protein is 6.5 with slightly low albumin fraction of 3.1. Lipase normal at 137. Labs do not reveal any abnormalities. Patient will require magnesium citrate to provide bowel cleanse. 05/10/18 08:25 Urinalysis shows negative ketones negative blood and negative nitrates but it does show 2+ leukocyte esterase. There is 0-5 RBCs per power field 20-30 WBCs per high-power field with numerous epithelial cells and many bacteria appreciated. Urine culture will be ordered. Patient's last urinalysis was done in 14 of March grow Klebsiella pneumonia. This is greater than 100 ,000 colony-forming units per meal. She was placed on Macrobid at that time and the organism was is resistant to that antibiotic. It is sensitive to all antibiotics including Levaquin. Patient will therefore be placed on Levaquin 500 mg once daily for the next 10 days. Departure - Departure Time of Disposition: 08:28 Condition: Fair - Discharge Information *PRESCRIPTION DRUG MONITORING PROGRAM REVIEWED*: Not Applicable *COPY OF PRESCRIPTION DRUG MONITORING REPORT IN PATIENT RANDELL: Not Applicable
[2018-05-10] MEDS ORDERED: Alum Hydrox/Mag Hydrox/Simeth 30 ML, Lidocaine 2% 15 ML PO ONE ×2 (06:40)
[2018-05-10] MEDS ORDERED: Magnesium Citrate Solution 296 ML Bottle PO ONE (08:03)
[2018-05-10] MEDS ORDERED: Acetaminophen 325 MG Tab PO ONE (08:21)
--- NOTE | 2018-05-10 10:53 | CR ---
Abdomen: Supine view of the abdomen was obtained. Comparison: Previous abdominal x-ray of 03/14/18. Mild increased stool is noted within the colon. Previous lumbar spine surgery is noted as well as surgical fixation screws across a left sacroiliac joint. Left hip prosthesis is noted. Several surgical clips are seen within the abdomen. Several calcifications are seen within the pelvis believed to represent phleboliths. Incidental soft tissue granulomas are noted within the buttocks. Impression: 1. Mild increased stool within colon. 2. Other incidental findings. Diagnostic code #2
== END 2018-05-10 08:41 | disposition home or self-care (01) ==
LOC: JD.ED 06:01
DX: K59.01 Slow transit constipation (principal); N39.0 Urinary tract infection, site not specified; I10 Essential (primary) hypertension; E11.9 Type 2 diabetes mellitus without complications; Z88.2 Allergy status to sulfonamides; Z79.899 Other long term (current) drug therapy; Z79.82 Long term (current) use of aspirin
CPT/HCPCS: 36415; 74018; 80053; 81001; 83690; 85007; 85027; 87086; 87088; 99284; A9270

== ENCOUNTER 2018-05-11 07:26 | Emergency (ER) | payer MEDICARE, BC ==
[2018-05-11 07:38] VITALS: BP 141/63
--- NOTE | 2018-05-11 08:13 | EDM.PDOC ---
ED HPI GENERAL MEDICAL PROBLEM - General Chief Complaint: Abdominal Pain Stated Complaint: ADOMINAL PAIN Time Seen by Provider: 05/11/18 07:43 Source of Information: Reports: Patient, RN Notes Reviewed - History of Present Illness INITIAL COMMENTS - FREE TEXT/NARRATIVE: 72-year-old lady comes in with abdominal pain, concern about continued constipation. She has been having a lot of difficulty with abdominal pain recently. She had a CAT scan done about 4 days ago. She was evaluated here in the emergency department yesterday morning for abdominal pain, constipation. Sent home with mag citrate. X-rays were done and also labs were done. The labs were normal other than probable UTI and she was started on Levaquin. She's continued to have mid and upper abdominal pain and cramping. She is continued to have a few watery type stools but not much substance. She states she did have a small amount of hard stool last evening after the mag citrate. Appetite is been diminished. There has been nausea but no vomiting. Upper Abdomen Pain Score (Numeric/FACES): 9 - Related Data Allergies Allergy/AdvReac Type Severity Reaction Status Date / Time Sulfa (Sulfonamide Allergy Swelling Verified 05/11/18 07:45 Antibiotics) Home Meds: Home Meds DULoxetine HCl [Cymbalta] 120 mg PO BEDTIME 05/21/15 [History] QUEtiapine Fumarate [Quetiapine Fumarate] 100 mg PO BEDTIME 05/21/15 [History] ClonazePAM [KlonoPIN] 1 mg PO BEDTIME 08/13/15 [History] Aspirin [Halfprin] 325 mg PO BID 03/20/16 [History] Cholecalciferol (Vitamin D3) [Vitamin D3] 2,000 unit PO BID 08/20/16 [History] Potassium Chloride [Klor-Con 10] 10 meq PO DAILY 02/07/17 [History] Denosumab [Prolia] 60 mg SUBCUT ASDIRECTED 04/24/17 [History] Acetaminophen [Acetaminophen Extra Strength] 500 mg PO Q4H PRN 05/10/18 [History ] Cyanocobalamin/FA/Pyridoxine [Virt-Jason Tablet] 1 tab PO DAILY 05/10/18 [History ] Gabapentin [Neurontin] 300 mg PO BEDTIME 05/10/18 [History] Levofloxacin [Levaquin] 500 mg PO DAILY #10 tablet 05/10/18 [Rx] Magnesium Oxide [Magnesium] 400 mg PO DAILY #30 capsule 05/10/18 [Rx] Polyethylene Glycol 3350 [MiraLAX] 17 gm PO BID 05/10/18 [History] Sennosides [Laxative] 15 mg PO BID 05/10/18 [History] Dicyclomine HCl [Bentyl] 10 mg PO TID PRN #14 capsule 05/11/18 [Rx] Past Medical History HEENT History: Reports: Allergic Rhinitis, Glaucoma, Impaired Vision Other HEENT History: wears glasses, dentures Cardiovascular History: Reports: Hypertension, SOB on Exertion Respiratory History: Reports: Other (See Below) Other Respiratory History: dypsnea Gastrointestinal History: Reports: Chronic Constipation, GERD, PUD, Other (See Below) Other Gastrointestinal History: GI ulcers Genitourinary History: Reports: Other (See Below) Other Genitourinary History: incomplete emptying of bladder, nocturia, urgency, UTI 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 (See 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) 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 ORAL HYGIENIST History: R breast biopsy, hot flashes Musculoskeletal History: Reports: Back Pain, Chronic, Other (See Below) Other Musculoskeletal History: rotator cuff repair, L leg pain, knee pain, hip pain, brachiplasty, arthritis, gluteal tendinopathy, trochanteric bursitis, osteopenia, back surgery with rods left total hip replacement January 31 Neurological History: Reports: Headaches, Chronic Psychiatric History: Reports: Anxiety, Depression, Panic Attack Other Psychiatric History: fatigue Endocrine/Metabolic History: Reports: Diabetes, Type II Other Endocrine/Metabolic History: resolved with gastric bypass Hematologic History: Reports: Blood Transfusion(s) Immunologic History: Reports: None Oncologic (Cancer) History: Reports: None Dermatologic History: Reports: None - Infectious Disease History Infectious Disease History: Reports: None - Past Surgical History GI Surgical History: Reports: Appendectomy, Bariatric Procedure, Cholecystectomy Female Surgical History: Reports: Breast Biopsy, Hysterectomy Neurological Surgical History: Reports: Lumbar Spine Musculoskeletal Surgical History: Reports: Knee Replacement, Shoulder Surgery Oncologic Surgical History: Reports: Biopsy of Breast Social & Family History - Family History Family Medical History: Noncontributory Cardiac: Reports: Bypass Respiratory: Reports: Sleep Apnea Psychiatric: Reports: Depression Endocrine/Metabolic: Reports: Diabetes, type II Oncologic: Reports: Bone, Colon, Lung, Ovarian, Other (See Below) Other Oncologic Family History: mother had colon, ovarian and and bone throat cancer; father had bone cancer and lung - Caffeine Use Caffeine Use: Reports: Coffee - Recreational Drug Use Recreational Drug Use: No - Living Situation & Occupation Living situation: Reports: , with Spouse Occupation: Retired ED ROS GENERAL - Review of Systems Review Of Systems: See Below Constitutional: Denies: Fever, Chills, Diaphoresis Respiratory: Denies: Shortness of Breath Cardiovascular: Denies: Chest Pain GI/Abdominal: Reports: Abdominal Pain, Constipation, Diarrhea, Nausea, Vomiting Musculoskeletal: Reports: No Symptoms Skin: Reports: No Symptoms Neurological: Reports: No Symptoms ED EXAM, GI/ABD - Physical Exam Exam: See Below General Appearance: Alert, No Apparent Distress Eyes: Bilateral: Normal Appearance Throat/Mouth: Normal Inspection, Normal Oropharynx Head: Atraumatic Neck: Supple, Full Range of Motion Respiratory/Chest: No Respiratory Distress, Lungs Clear, Normal Breath Sounds Cardiovascular: Regular Rate, Rhythm GI/Abdominal Exam: Soft, Tender (Mild tenderness mid abdomen and upper mid abdomen). No: Guarding, Rebound Rectal (Female) Exam: Other (Rectum was empty, slight trace stool present only which did wood turner to be a negative, no blood, no palpable mass or unusual tenderness) Extremities: Normal Inspection, Normal Range of Motion Neurological: Alert, Oriented Skin Exam: Warm, Dry, Normal Color Course - Vital Signs Last Recorded V/S: Last Vital Signs Temp 97 F 05/11/18 07:36 Pulse 93 05/11/18 07:36 Resp 18 05/11/18 07:36 BP 141/63 H 05/11/18 07:36 Pulse Ox 96 05/11/18 07:36 - Orders/Labs/Meds Meds: Medications Discontinued Medications Generic Name Dose Route Start Last Admin Trade Name Freq PRN Reason Stop Dose Admin Dicyclomine HCl 10 mg 05/11/18 09:03 05/11/18 09:16 Bentyl PO 05/11/18 09:04 10 mg ONETIME ONE Administration Ondansetron HCl 4 mg 05/11/18 09:03 05/11/18 09:16 Zofran Odt PO 05/11/18 09:04 4 mg ONETIME ONE Administration - Re-Assessments/Exams Free Text/Narrative Re-Assessment/Exam: 05/11/18 15:54 Flat and upright of the abdomen does not show near as much stool in the colon as was present earlier yesterday morning, also rectum on rectal exam was empty as noted, discharge instructions as documented. Departure - Departure Time of Disposition: 09:04 Disposition: Home, Self-Care 01 Condition: Fair Clinical Impression: Abdominal pain Qualifiers: Abdominal location: epigastric Qualified Code(s): R10.13 - Epigastric pain Constipation Qualifiers: Constipation type: slow transit constipation Qualified Code(s): K59.01 - Slow transit constipation Diarrhea Qualifiers: Diarrhea type: unspecified type Qualified Code(s): R19.7 - Diarrhea, unspecified - Discharge Information Prescriptions: Dicyclomine HCl [Bentyl] 10 mg PO TID PRN #14 capsule PRN Reason: Abdominal Pain Instructions: Diarrhea, Adult, Constipation, Adult Referrals: Bella Blum MD [Primary Care Provider] - Forms: ED Department Discharge Additional Instructions: Your small bowel and colon has inflammation from the constipation, oral contrast , other meds, subsequent diarrhea and needs some time to heal and get back towards normal. Clear liquids today until this evening as discussed, then very careful bland diet as tolerated. Begin probiotic and take that twice daily for about 2 weeks and thereafter as needed. That is available OTC. Bentyl 10 mg every 8 hours if needed for severe abdominal pain and cramping. Follow up clinic in about 3-4 days for recheck. Call Sunday for appointment.
[2018-05-11] MEDS ORDERED: Ondansetron 4 MG Tab.DIS PO ONE (09:03)
[2018-05-11] MEDS ORDERED: Dicyclomine 10 MG Cap PO ONE (09:03)
--- NOTE | 2018-05-11 11:34 | CR ---
Abdomen: Supine and upright views of the abdomen were obtained. Comparison: Prior abdominal x-ray of 05/10/18. Several air-fluid levels are seen within the upper right abdomen believed to be incidental. Surgical anastomotic sutures are seen within bowel. Multiple surgical clips are seen. Stable orthopedic screws and left hip prosthesis are noted. Calcifications are seen within the pelvis compatible with phleboliths. Increased stool seen on prior study is no longer identified. Impression: 1. Several air-fluid levels within the upper right abdomen believed to be incidental. Increased stool seen on prior study is no longer present. 2. Other incidental findings. Diagnostic code #2
== END 2018-05-11 09:25 | disposition home or self-care (01) ==
LOC: JD.ED 07:26
DX: K59.01 Slow transit constipation (principal); R19.7 Diarrhea, unspecified; I10 Essential (primary) hypertension; E11.9 Type 2 diabetes mellitus without complications; Z88.2 Allergy status to sulfonamides; Z79.899 Other long term (current) drug therapy
CPT/HCPCS: 74019; 99284; A9270; 99283

== ENCOUNTER 2018-08-08 06:43 | Emergency (ER) | payer MEDICARE, BC ==
[2018-08-08 06:52] VITALS: BP 138/73
--- NOTE | 2018-08-08 07:55 | EDM.PDOC ---
ED HPI GENERAL MEDICAL PROBLEM - General Chief Complaint: Abdominal Pain Stated Complaint: ABDOMEN PAIN Time Seen by Provider: 08/08/18 07:02 Source of Information: Reports: Patient History Limitations: Reports: No Limitations - History of Present Illness INITIAL COMMENTS - FREE TEXT/NARRATIVE: The patient presents with upper abdominal pain. This started last night at midnight. She woke up with it again this morning. She has no nausea, vomiting or diarrhea. She does have troubles with constipation. She has no fever, chills, cough, chest pain or shortness of breath. She has no dysuria. She does not have her gallbladder or appendix. The pain started a few hours after eating. Onset: Sudden Duration: Hour(s): Location: Reports: Abdomen Quality: Reports: Sharp Severity: Moderate Improves with: Reports: None Worsens with: Reports: None Associated Symptoms: Reports: No Other Symptoms Right Abdomen Pain Score (Numeric/FACES): 7 - Related Data Allergies Allergy/AdvReac Type Severity Reaction Status Date / Time Sulfa (Sulfonamide Allergy Swelling Verified 08/08/18 06:52 Antibiotics) Home Meds: Home Meds DULoxetine HCl [Cymbalta] 120 mg PO BEDTIME 05/21/15 [History] QUEtiapine Fumarate [Quetiapine Fumarate] 100 mg PO BID 05/21/15 [History] ClonazePAM [KlonoPIN] 1 mg PO BEDTIME 08/13/15 [History] Potassium Chloride [Klor-Con 10] 10 meq PO DAILY 02/07/17 [History] Bisacodyl [Laxative] 5 mg PO ASDIRECTED PRN 08/08/18 [History] Calcium Carbonate/Vitamin D3 [Calcium 600-Vit D3 800 Caplet] 1 tab PO DAILY 12/19 [History] Cholecalciferol (Vitamin D3) [Vitamin D3] 2,000 unit PO DAILY 08/08/18 [History] Cyanocobalamin/Folic AC/Vit B6 [Folbee] 1 tab PO DAILY 08/08/18 [History] Multivitamin/Iron/Folic Acid [Centrum Adults Tablet] 2 tab PO DAILY 08/08/18 [ History] Psyllium Husk [Psyllium Fiber] 1 tab PO DAILY 08/08/18 [History] Past Medical History HEENT History: Reports: Allergic Rhinitis, Glaucoma, Impaired Vision Other HEENT History: wears glasses, dentures Cardiovascular History: Reports: Hypertension, SOB on Exertion Respiratory History: Reports: Other (See Below) Other Respiratory History: dypsnea Gastrointestinal History: Reports: Chronic Constipation, GERD, PUD, Other (See Below) Other Gastrointestinal History: GI ulcers Genitourinary History: Reports: UTI, Recurrent, Other (See Below) Other Genitourinary History: incomplete emptying of bladder, nocturia, urgency, UTI 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: Other (See Below) Other 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 MACHINE OPERATOR OR TENDER History: R breast biopsy, hot flashes Musculoskeletal History: Reports: Back Pain, Chronic, Other (See Below) Other Musculoskeletal History: rotator cuff repair, L leg pain, knee pain, hip pain, brachiplasty, arthritis, gluteal tendinopathy, trochanteric bursitis, osteopenia, back surgery with rods left total hip replacement January 31 Neurological History: Reports: Headaches, Chronic Psychiatric History: Reports: Anxiety, Depression, Panic Attack Other Psychiatric History: fatigue Endocrine/Metabolic History: Reports: Diabetes, Type II Other Endocrine/Metabolic History: resolved with gastric bypass Hematologic History: Reports: Blood Transfusion(s) Immunologic History: Reports: None Oncologic (Cancer) History: Reports: None Dermatologic History: Reports: None - Infectious Disease History Infectious Disease History: Reports: None - Past Surgical History GI Surgical History: Reports: Appendectomy, Bariatric Procedure, Cholecystectomy Female Surgical History: Reports: Breast Biopsy, Hysterectomy Neurological Surgical History: Reports: Lumbar Spine Musculoskeletal Surgical History: Reports: Knee Replacement, Shoulder Surgery Oncologic Surgical History: Reports: Biopsy of Breast Social & Family History - Family History Family Medical History: Noncontributory Cardiac: Reports: Bypass Respiratory: Reports: Sleep Apnea Psychiatric: Reports: Depression Endocrine/Metabolic: Reports: Diabetes, type II Oncologic: Reports: Bone, Colon, Lung, Ovarian, Other (See Below) Other Oncologic Family History: mother had colon, ovarian and and bone throat cancer; father had bone cancer and lung - Tobacco Use Smoking Status *Q: Never Smoker - Caffeine Use Caffeine Use: Reports: Coffee - Recreational Drug Use Recreational Drug Use: No - Living Situation & Occupation Living situation: Reports: , with Spouse Occupation: Retired ED ROS GENERAL - Review of Systems Review Of Systems: See Below Constitutional: Reports: No Symptoms HEENT: Reports: No Symptoms Respiratory: Reports: No Symptoms Cardiovascular: Reports: No Symptoms Endocrine: Reports: No Symptoms GI/Abdominal: Reports: Abdominal Pain. Denies: Constipation, Diarrhea, Nausea, Vomiting : Reports: No Symptoms Musculoskeletal: Reports: No Symptoms ED EXAM, GI/ABD - Physical Exam Exam: See Below Exam Limited By: No Limitations General Appearance: Alert, No Apparent Distress Ears: Normal External Exam Nose: Normal Inspection Head: Atraumatic, Normocephalic Neck: Normal Inspection Respiratory/Chest: No Respiratory Distress, Lungs Clear, Normal Breath Sounds Cardiovascular: Regular Rate, Rhythm, No Edema, No Murmur GI/Abdominal Exam: Soft, Non-Tender, No Organomegaly, No Mass Course - Vital Signs Last Recorded V/S: Last Vital Signs Temp 96.9 F 08/08/18 06:49 Pulse 89 08/08/18 06:49 Resp 20 08/08/18 06:49 BP 138/73 08/08/18 06:49 Pulse Ox 95 08/08/18 06:49 - Orders/Labs/Meds Orders: Active Orders 24 hr Category Date Time Status UA W/MICROSCOPIC [URIN] Stat Lab 08/08/18 08:28 Ordered Labs: Laboratory Tests 08/08/18 08/08/18 Range/Units 07:20 07:20 WBC 7.26 (3.98-10.04) K/mm3 RBC 4.15 (3.98-5.22) M/mm3 Hgb 12.8 (11.2-15.7) gm/L Hct 39.3 (34.1-44.9) % MCV 94.7 (79.4-94.8) fl MCH 30.8 (25.6-32.2) pg MCHC 32.6 (32.2-35.5) g/dl RDW Std Deviation 46.8 H (36.4-46.3) fL Plt Count 271 (182-369) K/mm3 MPV 9.7 (9.4-12.3) fl Neut % (Auto) 46.1 (34.0-71.1) % Lymph % (Auto) 41.0 (19.3-51.7) % [place] % (Auto) 9.5 (4.7-12.5) % Eos % (Auto) 2.5 (0.7-5.8) Baso % (Auto) 0.6 (0.1-1.2) % Neut # (Auto) 3.35 (1.56-6.13) K/mm3 Lymph # (Auto) 2.98 (1.18-3.74) K/mm3 [place] # (Auto) 0.69 H (0.24-0.36) K/mm3 Eos # (Auto) 0.18 (0.04-0.36) K/mm3 Baso # (Auto) 0.04 (0.01-0.08) K/mm3 Sodium 144 (136-145) mEq/L Potassium 3.8 (3.5-5.1) mEq/L Chloride 109 H (98-107) mEq/L Carbon Dioxide 23 (21-32) mEq/L Anion Gap 15.8 H (5-15) BUN 18 (7-18) mg/dL Creatinine 0.8 (0.55-1.02) mg/dL Est Cr Clr Drug Dosing TNP Estimated GFR (MDRD) > 60 (>60) mL/min BUN/Creatinine Ratio 22.5 H (14-18) Glucose 99 (83-115) mg/dL Calcium 8.3 L (8.5-10.1) mg/dL Total Bilirubin 0.2 (0.2-1.0) mg/dL AST 18 (15-37) U/L ALT 23 (14-59) U/L Alkaline Phosphatase 61 (46-116) U/L Total Protein 6.3 L (6.4-8.2) g/dl Albumin 3.3 L (3.4-5.0) g/dl Globulin 3.0 gm/dL Albumin/Globulin Ratio 1.1 (1-2) Lipase 150 (73-393) U/L - Re-Assessments/Exams Free Text/Narrative Re-Assessment/Exam: 08/08/18 07:54 I ordered labs, UA and an x-ray of her abdomen. 08/08/18 09:06 Her abdominal x-ray looks good. Her CBC looks good. Her anion gap was slightly elevated at 15.8. Her lipase was normal. I am waiting for her UA now. 08/08/18 09:35 The pain did come back and it left again. I am still waiting on her urine. I will discharge her home and have her take her prilosec. She was on that after gastric bypass because she was having some much problems. This could be another ulcer again. Departure - Departure Time of Disposition: 09:40 Disposition: Home, Self-Care 01 Condition: Good Clinical Impression: Abdominal pain Qualifiers: Abdominal location: epigastric Qualified Code(s): R10.13 - Epigastric pain - Discharge Information *PRESCRIPTION DRUG MONITORING PROGRAM REVIEWED*: Not Applicable *COPY OF PRESCRIPTION DRUG MONITORING REPORT IN PATIENT RANDELL: Not Applicable Referrals: Bella Hinojosa [employer] [Primary Care Provider] - 1 Week Forms: ED Department Discharge Additional Instructions: Take prilosec daily for 2 weeks. Follow up with Cheryle Hinojosa in about a week. Please return if you are worse. - My Orders Last 24 Hours: My Active Orders 08/08/18 08:28 UA W/MICROSCOPIC [URIN] Stat - Assessment/Plan Last 24 Hours: My Active Orders 08/08/18 08:28 UA W/MICROSCOPIC [URIN] Stat
--- NOTE | 2018-08-08 08:34 | CR ---
Abdominal series: Supine and upright views of the abdomen were obtained as well as frontal view of the chest. Comparison: Previous abdominal x-ray of 05/11/18 and chest x-ray of 03/14/18. Heart size is normal. Tortuous thoracic aorta is seen. Previous right shoulder surgery is noted. Mild scoliosis is noted within the spine. No acute parenchymal change is seen within the lungs. Left hip prosthesis noted. Fixation screws are noted across the left sacroiliac joint. Transpedicle screws are seen at the lumbosacral junction. Surgical clips are seen within the abdomen. Bowel gas pattern appears unremarkable. No abnormal calcifications or discrete soft tissue abnormality is identified. No free air is seen. Impression: 1. Incidental findings. Nothing acute is appreciated. Diagnostic code #2
== END 2018-08-08 09:45 | disposition home or self-care (01) ==
LOC: JD.ED 06:43
DX: R10.13 Epigastric pain (principal); I10 Essential (primary) hypertension; K21.9 Gastro-esophageal reflux disease without esophagitis; F41.9 Anxiety disorder, unspecified; F32.9 Major depressive disorder, single episode, unspecified; E11.9 Type 2 diabetes mellitus without complications; Z79.899 Other long term (current) drug therapy; Z88.2 Allergy status to sulfonamides
CPT/HCPCS: 36415; 74022; 74022-26; 80053; 81001; 83690; 85025; 99283; 99284-25

== ENCOUNTER 2019-03-01 23:46 | Emergency (ER) | payer MEDICARE, BC ==
[2019-03-01 23:54] VITALS: BP 138/71; PULSE 103
[2019-03-02] MEDS ORDERED: Alum Hydrox/Mag Hydrox/Simeth 30 ML, Lidocaine 2% 15 ML PO STA ×2 (00:16)
--- NOTE | 2019-03-02 00:21 | EDM.PDOC ---
ED HPI GENERAL MEDICAL PROBLEM - General Chief Complaint: Chest Pain Stated Complaint: CHEST PAINS Time Seen by Provider: 03/01/19 23:57 Source of Information: Reports: Patient, Family () History Limitations: Reports: No Limitations - History of Present Illness INITIAL COMMENTS - FREE TEXT/NARRATIVE: Mrs. Callejas is a very pleasant 73-year-old woman with a past medical history significant for gastric bypass in 2003, anxiety, depression, and panic disorder , on several medications. She states that she was woken around 23:30 this evening with central chest pain, sharp in character, the radiated up to her bilateral jaw. She states that the sensation was a pain, not her discomfort. It resolved after 5-10 minutes, after she took some Pepto-Bismol. She states that she still has a "funny" feeling in her central upper chest. She did not experience any associated dyspnea, nausea, diaphoresis, or sense of impending doom. No prior similar symptoms. The patient states that she has been feeling weak and fatigued for the past 2 days, but she has not had a recent fever, cough, dyspnea, palpitations, constipation, diarrhea, or urinary symptoms. She states that she chronically has some nausea ever since her gastric bypass, although more recently, she has had a decreased appetite, and sometimes has some emesis. In reviewing the patient's past medical history, the patient denies numerous medical conditions that were previously documented, including allergic rhinitis , glaucoma, hypertension, GERD, peptic ulcer disease, and arthritis. The patient's PCP is Dr. Dawson Ta. She has not received an influenza vaccine this season, and declined an offer for one here. Chest Pain Score (Numeric/FACES): 2 - Related Data Allergies Allergy/AdvReac Type Severity Reaction Status Date / Time Sulfa (Sulfonamide Allergy Swelling Verified 03/01/19 23:55 Antibiotics) Home Meds: Home Meds DULoxetine HCl [Cymbalta] 120 mg PO BEDTIME 05/21/15 [History] QUEtiapine Fumarate [Quetiapine Fumarate] 100 mg PO BID 05/21/15 [History] ClonazePAM [KlonoPIN] 1 mg PO BEDTIME 08/13/15 [History] Potassium Chloride [Klor-Con 10] 10 meq PO DAILY 02/07/17 [History] Bisacodyl [Laxative] 5 mg PO ASDIRECTED PRN 08/08/18 [History] Calcium Carbonate/Vitamin D3 [Calcium 600-Vit D3 800 Caplet] 1 tab PO DAILY 12/19 [History] Cholecalciferol (Vitamin D3) [Vitamin D3] 2,000 unit PO DAILY 08/08/18 [History] Cyanocobalamin/Folic AC/Vit B6 [Folbee] 1 tab PO DAILY 08/08/18 [History] Multivitamin/Iron/Folic Acid [Centrum Adults Tablet] 2 tab PO DAILY 08/08/18 [ History] Psyllium Husk [Psyllium Fiber] 1 tab PO DAILY 08/08/18 [History] Nitrofurantoin Monohyd/M-Cryst [Macrobid 100 mg Capsule] 1 cap PO Q12H #9 capsule 03/02/19 [Rx] Past Medical History HEENT History: Reports: Impaired Vision Other HEENT History: wears glasses, dentures Genitourinary History: Reports: Retention, Urinary Psychiatric History: Reports: Anxiety, Depression, Panic Attack Endocrine/Metabolic History: Reports: Diabetes, 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, 2003), Osteopenia - Past Surgical History HEENT Surgical History: Reports: Cataract Surgery (bilateral), Tonsillectomy GI Surgical History: Reports: Appendectomy, Bariatric Procedure (gastric bypass 2003), Cholecystectomy (around 1974) Female Surgical History: Reports: D&C (x 1), Hysterectomy (complete), Tubal Ligation Neurological Surgical History: Reports: Lumbar Spine (fusion) Musculoskeletal Surgical History: Reports: Hip Replacement (left), Knee Replacement (left), Shoulder Surgery (right, open) Oncologic Surgical History: Reports: Biopsy of Breast (right, benign) Social & Family History - Family History Family Medical History: Noncontributory Cardiac: Reports: Bypass Respiratory: Reports: Sleep Apnea Psychiatric: Reports: Depression Endocrine/Metabolic: Reports: Diabetes, type II Oncologic: Reports: Bone, Colon, Lung, Ovarian, Other (See Below) Other Oncologic Family History: mother had colon, ovarian and and bone throat cancer; father had bone cancer and lung - Tobacco Use Smoking Status *Q: Never Smoker Second Hand Smoke Exposure: No - Caffeine Use Caffeine Use: Reports: Coffee - Alcohol Use Alcohol Use History: Yes Alcohol Use Frequency: Rarely - Recreational Drug Use Recreational Drug Use: No - Living Situation & Occupation Living situation: Reports: , with Spouse Occupation: Retired ED ROS GENERAL - Review of Systems Review Of Systems: Comprehensive ROS is negative, except as noted in HPI. GI/Abdominal: Reports: Constipation Musculoskeletal: Reports: Back Pain Neurological: Reports: Headache ED EXAM, GENERAL - Physical Exam Exam: See Below Exam Limited By: No Limitations General Appearance: Alert, WD/WN, No Apparent Distress Eye Exam: Bilateral Eye: EOMI, Normal Inspection Ears: Normal External Exam, Hearing Grossly Normal Nose: Normal Inspection Throat/Mouth: Normal Inspection, Normal Lips, Normal Voice, No Airway Compromise Head: Atraumatic, Normocephalic Neck: Normal Inspection, Full Range of Motion. No: Lymphadenopathy (L), Lymphadenopathy (R) Respiratory/Chest: No Respiratory Distress, Lungs Clear, Normal Breath Sounds, No Accessory Muscle Use, Chest Non-Tender. No: Decreased Breath Sounds, Crackles, Rhonchi, Wheezing, Stridor, Prolonged Expiration Cardiovascular: Normal Peripheral Pulses, Regular Rate, Rhythm, No Edema, No Gallop, No JVD, No Murmur, No Rub GI/Abdominal: Normal Bowel Sounds, Soft, Non-Tender (including the epigastrium) , No Organomegaly, No Distention, No Abnormal Bruit, No Mass (Female) Exam: Deferred Rectal (Female) Exam: Deferred Back Exam: Normal Inspection, Full Range of Motion, NT Extremities: Normal Inspection, Normal Range of Motion, No Pedal Edema, Normal Capillary Refill Neurological: Alert, Oriented, Normal Cognition, No Motor/Sensory Deficits Psychiatric: Normal Affect Skin Exam: Warm, Dry, Intact, Normal Color, No Rash EKG INTERPRETATION EKG Date: 03/01/19 Time: 23:52 Rhythm: Other (Sinus tachycardia) Rate (Beats/Min): 100 [place]: Normal P-Wave: Present QRS: Other (Late transition) ST-T: Normal QT: Normal Comparison: No Change (03/14/2018) Course - Vital Signs Last Recorded V/S: Last Vital Signs Temp 35.8 C 03/01/19 23:52 Pulse 103 H 03/01/19 23:52 Resp 20 03/01/19 23:52 BP 138/71 03/01/19 23:52 Pulse Ox 93 L 03/01/19 23:52 - Orders/Labs/Meds Orders: Active Orders 24 hr Category Date Time Status EKG Documentation Completion [RC] ASDIRECTED Care 03/01/19 23:55 Active Chest 2V [CR] Stat Exams 03/02/19 00:00 Ordered CULTURE URINE [RM] Stat Lab 03/02/19 00:54 Ordered Nitrofurantoin [place]/Macrocryst [Macrobid] Med 03/02/19 00:55 Stat 100 mg PO ONETIME STA EKG 12 Lead [EK] Stat Ther 03/01/19 23:55 Ordered Medication Orders Nitrofurantoin Macrocrystals (Macrobid) 100 mg PO ONETIME STA Stop: 03/02/19 00:56 Labs: Laboratory Tests 03/02/19 03/02/19 03/02/19 Range/Units 00:10 00:10 00:10 WBC 9.11 (3.98-10.04) K/mm3 RBC 4.24 (3.98-5.22) M/mm3 Hgb 13.2 (11.2-15.7) gm/dl Hct 39.2 (34.1-44.9) % MCV 92.5 (79.4-94.8) fl MCH 31.1 (25.6-32.2) pg MCHC 33.7 (32.2-35.5) g/dl RDW Std Deviation 46.5 H (36.4-46.3) fL Plt Count 245 (182-369) K/mm3 MPV 9.8 (9.4-12.3) fl Neut % (Auto) 43.2 (34.0-71.1) % Lymph % (Auto) 42.5 (19.3-51.7) % [place] % (Auto) 9.5 (4.7-12.5) % Eos % (Auto) 2.1 (0.7-5.8) Baso % (Auto) 2.7 H (0.1-1.2) % Neut # (Auto) 3.93 (1.56-6.13) K/mm3 Lymph # (Auto) 3.87 H (1.18-3.74) K/mm3 [place] # (Auto) 0.87 H (0.24-0.36) K/mm3 Eos # (Auto) 0.19 (0.04-0.36) K/mm3 Baso # (Auto) 0.25 H (0.01-0.08) K/mm3 D-Dimer, Quantitative 0.47 (0.19-0.50) mg/L Sodium 138 (136-145) mEq/L Potassium 3.9 (3.5-5.1) mEq/L Chloride 104 (98-107) mEq/L Carbon Dioxide 23 (21-32) mEq/L Anion Gap 14.9 (5-15) BUN 17 (7-18) mg/dL Creatinine 0.9 (0.55-1.02) mg/dL Est Cr Clr Drug Dosing 38.79 mL/min Estimated GFR (MDRD) > 60 (>60) mL/min BUN/Creatinine Ratio 18.9 H (14-18) Glucose 137 H (83-115) mg/dL Calcium 9.4 (8.5-10.1) mg/dL Total Bilirubin 0.2 (0.2-1.0) mg/dL AST 16 (15-37) U/L ALT 22 (14-59) U/L Alkaline Phosphatase 82 (46-116) U/L Troponin I < 0.017 (0.00-0.056) ng/mL Total Protein 6.7 (6.4-8.2) g/dl Albumin 3.5 (3.4-5.0) g/dl Globulin 3.2 gm/dL Albumin/Globulin Ratio 1.1 (1-2) Urine Color (Yellow) Urine Appearance (Clear) Urine pH (5.0-8.0) Ur Specific [place] (1.005-1.030) Urine Protein (Negative) Urine Glucose (UA) (Negative) Urine Ketones (Negative) Urine Occult Blood (Negative) Urine Nitrite (Negative) Urine Bilirubin (Negative) Urine Urobilinogen (0.2-1.0) Ur Leukocyte Esterase (Negative) Urine RBC (0-5) /hpf Urine WBC (0-5) /hpf Ur Squamous Epith Cells (0-5) /hpf Urine Bacteria (FEW) /hpf Hyaline Casts (0-5) /lpf Urine Mucus (FEW) /hpf 03/02/19 Range/Units 00:30 WBC (3.98-10.04) K/mm3 RBC (3.98-5.22) M/mm3 Hgb (11.2-15.7) gm/dl Hct (34.1-44.9) % MCV (79.4-94.8) fl MCH (25.6-32.2) pg MCHC (32.2-35.5) g/dl RDW Std Deviation (36.4-46.3) fL Plt Count (182-369) K/mm3 MPV (9.4-12.3) fl Neut % (Auto) (34.0-71.1) % Lymph % (Auto) (19.3-51.7) % [place] % (Auto) (4.7-12.5) % Eos % (Auto) (0.7-5.8) Baso % (Auto) (0.1-1.2) % Neut # (Auto) (1.56-6.13) K/mm3 Lymph # (Auto) (1.18-3.74) K/mm3 [place] # (Auto) (0.24-0.36) K/mm3 Eos # (Auto) (0.04-0.36) K/mm3 Baso # (Auto) (0.01-0.08) K/mm3 D-Dimer, Quantitative (0.19-0.50) mg/L Sodium (136-145) mEq/L Potassium (3.5-5.1) mEq/L Chloride (98-107) mEq/L Carbon Dioxide (21-32) mEq/L Anion Gap (5-15) BUN (7-18) mg/dL Creatinine (0.55-1.02) mg/dL Est Cr Clr Drug Dosing mL/min Estimated GFR (MDRD) (>60) mL/min BUN/Creatinine Ratio (14-18) Glucose (83-115) mg/dL Calcium (8.5-10.1) mg/dL Total Bilirubin (0.2-1.0) mg/dL AST (15-37) U/L ALT (14-59) U/L Alkaline Phosphatase (46-116) U/L Troponin I (0.00-0.056) ng/mL Total Protein (6.4-8.2) g/dl Albumin (3.4-5.0) g/dl Globulin gm/dL Albumin/Globulin Ratio (1-2) Urine Color Yellow (Yellow) Urine Appearance Clear (Clear) Urine pH 6.0 (5.0-8.0) Ur Specific [place] 1.015 (1.005-1.030) Urine Protein Negative (Negative) Urine Glucose (UA) Negative (Negative) Urine Ketones Negative (Negative) Urine Occult Blood Negative (Negative) Urine Nitrite Positive H (Negative) Urine Bilirubin Negative (Negative) Urine Urobilinogen 0.2 (0.2-1.0) Ur Leukocyte Esterase 1+ H (Negative) Urine RBC 0-5 (0-5) /hpf Urine WBC 5-10 H (0-5) /hpf Ur Squamous Epith Cells 0-5 (0-5) /hpf Urine Bacteria Few (FEW) /hpf Hyaline Casts 0-5 (0-5) /lpf Urine Mucus Rare (FEW) /hpf Meds: Medications Generic Name Dose Route Start Last Admin Trade Name Freq PRN Reason Stop Dose Admin Nitrofurantoin Macrocrystals 100 mg 03/02/19 00:55 Macrobid PO 03/02/19 00:56 ONETIME STA Discontinued Medications Generic Name Dose Route Start Last Admin Trade Name Freq PRN Reason Stop Dose Admin Al Hydroxide/Mg Hydroxide 30 0 ml 03/02/19 00:16 03/02/19 00:28 ml/ Lidocaine HCl 15 ml PO 03/02/19 00:17 45 ml ONETIME STA Administration - Re-Assessments/Exams Free Text/Narrative Re-Assessment/Exam: 03/02/19 00:15 I think it unlikely that the patient's chest pain is cardiac in etiology, especially since it woke her from sleep, and resolved after she took Pepto Bismol. I think it most likely that the patient's pain was due to acid reflux. At present, the patient states that she has a "funny" feeling in her upper chest. I have ordered a GI cocktail to see if that affects the residual discomfort. In the meantime, I have also ordered a workup that includes blood work and a chest x-ray. An ECG was ordered by the patient's RN, and demonstrates a sinus tachycardia of 100 bpm, but is otherwise unremarkable. 03/02/19 00:32 Notified by Davis SMITH that the patient is requesting a urinalysis him a and she already provided a urine sample by clean-catch. She told Davis that she has been having dysuria and urinary frequency. She had denied those symptoms when I asked her earlier. I have ordered a urinalysis. 03/02/19 00:52 2-view chest radiograph reviewed. The cardiac silhouette is within normal limits. No pulmonary vascular congestion. No pleural effusions. No focal infiltrate. No pneumothorax. Thoracolumbar scoliosis incidentally noted. Right shoulder surgical anchors incidentally noted. Lumbar fusion hardware noted on the lateral view. Formal read per the Radiologist pending. 03/02/19 00:56 The patient's CBC is unremarkable. Her CMP is remarkable for blood glucose slightly elevated at 137, and is otherwise unremarkable. Her troponin is undetectably low. Her D-dimer is within normal limits at 0.47. Her urinalysis is remarkable for occult blood negative with 0-5 RBCs, 1+ leukocyte esterase with 5-10 WBCs, nitrite positive with few bacteria, and 0-5 squamous epithelial cells. The patient's urinalysis is consistent with a UTI. I have ordered a urine culture, and will start the patient on a five-day course of nitrofurantoin. 03/02/19 01:01 The patient reports complete resolution of her residual chest discomfort following a GI cocktail. Test results discussed with the patient and her . As above, it appears that the patient has a UTI, which is likely responsible for her recent fatigue. I suspect that her chest pain, however, is due to GERD. I will start the patient on Pepcid, and recommend that she continue to take 1 [id number] tablet per day. The patient will be discharged home, and I will submit a description for a five-day course of nitrofurantoin. I would like the patient follow-up with her PCP Sunday morning, 03/05/2019, in order to check on the urine culture results. Departure - Departure Time of Disposition: 01:03 Disposition: Home, Self-Care 01 Condition: Good Clinical Impression: GERD (gastroesophageal reflux disease) UTI (urinary tract infection) Qualifiers: Urinary tract infection type: acute cystitis Hematuria presence: without hematuria Qualified Code(s): N30.00 - Acute cystitis without hematuria - Discharge Information *PRESCRIPTION DRUG MONITORING PROGRAM REVIEWED*: Not Applicable *COPY OF PRESCRIPTION DRUG MONITORING REPORT IN PATIENT RANDELL: Not Applicable Referrals: Dawson Ta MD [Primary Care Provider] - Forms: ED Department Discharge Additional Instructions: You were seen in the emergency room her waking up with chest pain radiating up to your jaw. Workup in the ER included blood work, a urinalysis, a chest x-ray, and an ECG. Your blood work, chest x-ray, and ECG were unremarkable - you have not suffered a heart attack. Based on your history, physical exam, and your tests, your chest pain was most likely due to acid reflux, also known as GERD. You have been started on the antacid medicine famotidine (Pepcid). Famotidine is available [id number]. We recommend that you take one tablet of famotidine every day. Your urinalysis indicates that you have a urinary tract infection. A sample of your urine has been sent for culture. You have been started on the antibiotic nitrofurantoin (Macrobid). A prescription for nitrofurantoin has been sent to the [facility], located just south and across the [address] from [facility]. Take one tablet of nitrofurantoin every 12 hours, starting this evening, Sunday, 2018, as prescribed. It is very important that you finish the entire prescription unless told otherwise by your doctor. Stay adequately hydrated. It does not really matter what type of fluid you drink. Follow-up with your PCP, Dr. Dawson Ta, on Sunday morning, 03/05/2019, to check on your urine culture results, to make sure that you are on the correct antibiotic. If any other problems, please do not hesitate to return to the ER. - My Orders Last 24 Hours: My Active Orders 03/01/19 23:55 EKG Documentation Completion [RC] ASDIRECTED EKG 12 Lead [EK] Stat 03/02/19 00:00 Chest 2V [CR] Stat 03/02/19 00:54 CULTURE URINE [RM] Stat 03/02/19 00:55 Nitrofurantoin [place]/Macrocryst [Macrobid] 100 mg PO ONETIME STA - Assessment/Plan Last 24 Hours: My Active Orders 03/01/19 23:55 EKG Documentation Completion [RC] ASDIRECTED EKG 12 Lead [EK] Stat 03/02/19 00:00 Chest 2V [CR] Stat 03/02/19 00:54 CULTURE URINE [RM] Stat 03/02/19 00:55 Nitrofurantoin [place]/Macrocryst [Macrobid] 100 mg PO ONETIME STA
[2019-03-02] MEDS ORDERED: Nitrofurantoin Monohydrate/Macrocrystalline 100 MG Cap PO STA (00:55)
[2019-03-02] MEDS ORDERED: Famotidine 20 MG Tab PO ONE (01:04)
--- NOTE | 2019-03-03 09:12 | CR ---
Chest: Two views of the chest were obtained. Comparison: Prior chest x-ray of 03/14/18. Heart size and mediastinum are normal. Lungs are clear with no acute parenchymal change. Slight scoliosis is noted within the spine. Surgical anchors are noted within the right shoulder. Prior lower lumbar spine surgery is seen. Mild disc space narrowing is noted within the spine with mild scoliosis. Impression: 1. Findings as described above. 2. Nothing acute is identified on two-view chest x-ray. Diagnostic code #2 This report was dictated in [place] Standard Time
== END 2019-03-02 01:18 | disposition home or self-care (01) ==
LOC: JD.ED 23:46
DX: K21.9 Gastro-esophageal reflux disease without esophagitis (principal); N30.00 Acute cystitis without hematuria; J15.0 Pneumonia due to Klebsiella pneumoniae; F32.9 Major depressive disorder, single episode, unspecified; E11.9 Type 2 diabetes mellitus without complications; Z88.2 Allergy status to sulfonamides; Z79.899 Other long term (current) drug therapy
CPT/HCPCS: 36415; 71046; 80053; 81001; 84484; 85025; 85379; 87086; 87088; 87186; 93005; 99285; A9270; 93010; 99283

== ENCOUNTER 2020-03-05 09:50 | Emergency (ER) | payer MEDICARE, BC ==
[2020-03-05 10:22] VITALS: BP 136/103; PULSE 82
--- NOTE | 2020-03-05 10:29 | EDM.PDOC ---
ED HPI GENERAL MEDICAL PROBLEM - General Chief Complaint: Abdominal Pain Stated Complaint: ABDOMINAL PAIN Time Seen by Provider: 03/05/20 10:18 Source of Information: Reports: Patient History Limitations: Reports: No Limitations - History of Present Illness INITIAL COMMENTS - FREE TEXT/NARRATIVE: The patient presents with upper abdominal pain. This started yesterday. She says the pain comes and goes and she is nauseated at times. She has no fever, chills, cough, congestion, runny nose, diarrhea or dysuria. She does not have a gallbladder or appendix. She did not eat any bad food. Onset: Gradual Duration: Day(s): Location: Reports: Abdomen Quality: Reports: Burning Severity: Moderate Improves with: Reports: None Worsens with: Reports: None Associated Symptoms: Reports: Nausea/Vomiting. Denies: Chest Pain, Cough, Fever/Chills, Headaches, Shortness of Breath Right Upper Abdominal Pain Score (Numeric/FACES): 7 - Related Data Allergies Allergy/AdvReac Type Severity Reaction Status Date / Time Sulfa (Sulfonamide Allergy Swelling Verified 03/05/20 10:21 Antibiotics) Home Meds: Home Meds DULoxetine HCl [Cymbalta] 120 mg PO BEDTIME 05/21/15 [History] QUEtiapine Fumarate [Quetiapine Fumarate] 100 mg PO BID 05/21/15 [History] ClonazePAM [KlonoPIN] 1 mg PO BEDTIME 08/13/15 [History] Potassium Chloride [Klor-Con 10] 10 meq PO DAILY 02/07/17 [History] Calcium Carbonate/Vitamin D3 [Calcium 600-Vit D3 800 Caplet] 1 tab PO DAILY 08/08/18 [History] Cholecalciferol (Vitamin D3) [Vitamin D3] 2,000 unit PO DAILY 08/08/18 [History] Cyanocobalamin/Folic AC/Vit B6 [Folbee] 1 tab PO DAILY 08/08/18 [History] Multivitamin/Iron/Folic Acid [Centrum Adults Tablet] 2 tab PO DAILY 08/08/18 [History] Psyllium Husk [Psyllium Fiber] 1 tab PO DAILY 08/08/18 [History] bisacodyL [Laxative] 5 mg PO ASDIRECTED PRN 08/08/18 [History] Nitrofurantoin Monohyd/M-Cryst [Macrobid 100 mg Capsule] 1 cap PO Q12H #9 capsule 03/02/19 [Rx] Past Medical History HEENT History: Reports: Impaired Vision Other HEENT History: wears glasses, dentures Cardiovascular History: Reports: Hypertension, SOB on Exertion Respiratory History: Reports: Other (See Below) Other Respiratory History: dypsnea Gastrointestinal History: Reports: Chronic Constipation, GERD, PUD, Other (See Below) Other Gastrointestinal History: GI ulcers Genitourinary History: Reports: Retention, Urinary Other Genitourinary History: incomplete emptying of bladder, nocturia, urgency, UTI DIRECTOR INFORMATION History: Reports: Other (See Below) Other DIRECTOR INFORMATION History: R breast biopsy, hot flashes Musculoskeletal History: Reports: Back Pain, Chronic, Other (See Below) Other Musculoskeletal History: rotator cuff repair, L leg pain, knee pain, hip pain, brachiplasty, arthritis, gluteal tendinopathy, trochanteric bursitis, osteopenia, back surgery with rods left total hip replacement January 31 Neurological History: Reports: Headaches, Chronic Psychiatric History: Reports: Anxiety, Depression, Panic Attack Other Psychiatric History: fatigue Endocrine/Metabolic History: Reports: Diabetes, 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, 2003), Osteopenia Other Endocrine/Metabolic History: resolved with gastric bypass Hematologic History: Reports: Blood Transfusion(s) Immunologic History: Reports: None Oncologic (Cancer) History: Reports: None Dermatologic History: Reports: None - Infectious Disease History Infectious Disease History: Reports: None - Past Surgical History HEENT Surgical History: Reports: Cataract Surgery (bilateral), Tonsillectomy GI Surgical History: Reports: Appendectomy, Bariatric Procedure (gastric bypass 2003), Cholecystectomy (around 1974) Female Surgical History: Reports: D&C (x 1), Hysterectomy (complete), Tubal Ligation Neurological Surgical History: Reports: Lumbar Spine (fusion) Musculoskeletal Surgical History: Reports: Hip Replacement (left), Knee Replacement (left), Shoulder Surgery (right, open) Oncologic Surgical History: Reports: Biopsy of Breast (right, benign) Social & Family History - Family History Family Medical History: No Pertinent Family History Cardiac: Reports: Bypass Respiratory: Reports: Sleep Apnea Psychiatric: Reports: Depression Endocrine/Metabolic: Reports: Diabetes, type II Oncologic: Reports: Bone, Colon, Lung, Ovarian, Other (See Below) Other Oncologic Family History: mother had colon, ovarian and and bone throat cancer; father had bone cancer and lung - Caffeine Use Caffeine Use: Reports: Coffee - Living Situation & Occupation Living situation: Reports: , with Spouse Occupation: Retired ED ROS GENERAL - Review of Systems Review Of Systems: See Below Constitutional: Reports: No Symptoms HEENT: Reports: No Symptoms Respiratory: Reports: No Symptoms Cardiovascular: Reports: No Symptoms Endocrine: Reports: No Symptoms GI/Abdominal: Reports: Abdominal Pain, Nausea. Denies: Diarrhea, Vomiting : Reports: No Symptoms Musculoskeletal: Reports: No Symptoms ED EXAM, GI/ABD - Physical Exam Exam: See Below Exam Limited By: No Limitations General Appearance: Alert, No Apparent Distress Ears: Normal External Exam Nose: Normal Inspection Head: Atraumatic, Normocephalic Neck: Normal Inspection Respiratory/Chest: No Respiratory Distress, Lungs Clear, Normal Breath Sounds Cardiovascular: Regular Rate, Rhythm, No Edema, No Murmur GI/Abdominal Exam: Soft, No Organomegaly, No Mass, Tender (Mild tenderness to the epigastric region) Course - Vital Signs Last Recorded V/S: Last Vital Signs Temp 96.9 F 03/05/20 10:18 Pulse 82 03/05/20 10:18 Resp 16 03/05/20 10:18 BP 136/103 H 03/05/20 10:18 Pulse Ox 93 L 03/05/20 10:18 - Orders/Labs/Meds Orders: Active Orders 24 hr Category Date Time Status Peripheral IV Care [RC] . DIRECTED Care 03/05/20 10:32 Active Sodium Chloride 0.9% [Saline Flush] Med 03/05/20 10:31 Active 10 ml FLUSH ASDIRECTED PRN Sodium Chloride 0.9% [Saline Flush] Med 03/05/20 10:39 Active 10 ml FLUSH ONETIME PRN ED Antiemetic Medication Reflex [OM.PC] Stat Oth 03/05/20 10:31 Ordered Peripheral IV Insertion Adult [OM.PC] Stat Oth 03/05/20 10:31 Ordered Medication Orders Sodium Chloride (Saline Flush) 10 ml FLUSH ASDIRECTED PRN PRN Reason: Keep Vein Open Last Admin: 03/05/20 10:59 Dose: 10 ml Documented by: MIGEL Sodium Chloride (Saline Flush) 10 ml FLUSH ONETIME PRN PRN Reason: IV FLUSH Last Admin: 03/05/20 11:50 Dose: 10 ml Documented by: STEWART Labs: Laboratory Tests 03/05/20 03/05/20 Range/Units 10:50 10:50 WBC 7.66 (3.98-10.04) K/mm3 RBC 4.63 (3.98-5.22) M/mm3 Hgb 14.9 D (11.2-15.7) gm/dl Hct 45.1 H (34.1-44.9) % MCV 97.4 H D (79.4-94.8) fl MCH 32.2 (25.6-32.2) pg MCHC 33.0 (32.2-35.5) g/dl RDW Std Deviation 47.7 H (36.4-46.3) fL Plt Count 258 (182-369) K/mm3 MPV 9.8 (9.4-12.3) fl Neut % (Auto) 64.3 (34.0-71.1) % Lymph % (Auto) 24.0 (19.3-51.7) % Isabella % (Auto) 9.8 (4.7-12.5) % Eos % (Auto) 1.4 (0.7-5.8) Baso % (Auto) 0.4 (0.1-1.2) % Neut # (Auto) 4.92 (1.56-6.13) K/mm3 Lymph # (Auto) 1.84 (1.18-3.74) K/mm3 Isabella # (Auto) 0.75 H (0.24-0.36) K/mm3 Eos # (Auto) 0.11 (0.04-0.36) K/mm3 Baso # (Auto) 0.03 (0.01-0.08) K/mm3 Sodium 140 (136-145) mEq/L Potassium 4.3 (3.5-5.1) mEq/L Chloride 103 (98-107) mEq/L Carbon Dioxide 27 (21-32) mEq/L Anion Gap 14.3 (5-15) BUN 17 (7-18) mg/dL Creatinine 0.8 (0.55-1.02) mg/dL Est Cr Clr Drug Dosing 42.97 mL/min Estimated GFR (MDRD) > 60 (>60) mL/min BUN/Creatinine Ratio 21.3 H (14-18) Glucose 108 (83-115) mg/dL Calcium 10.2 H (8.5-10.1) mg/dL Total Bilirubin 0.4 (0.2-1.0) mg/dL AST 26 (15-37) U/L ALT 32 (14-59) U/L Alkaline Phosphatase 80 (46-116) U/L Total Protein 7.8 (6.4-8.2) g/dl Albumin 4.1 (3.4-5.0) g/dl Globulin 3.7 gm/dL Albumin/Globulin Ratio 1.1 (1-2) Lipase 140 (73-393) U/L Meds: Medications Generic Name Dose Route Start Last Admin Trade Name Freq PRN Reason Stop Dose Admin Sodium Chloride 10 ml 03/05/20 10:31 03/05/20 10:59 Saline Flush FLUSH 10 ml ASDIRECTED PRN Administration Keep Vein Open Sodium Chloride 10 ml 03/05/20 10:39 03/05/20 11:50 Saline Flush FLUSH 10 ml ONETIME PRN Administration IV FLUSH Discontinued Medications Generic Name Dose Route Start Last Admin Trade Name Freq PRN Reason Stop Dose Admin Diatrizoate Meglum/Diatrizoate Sod 120 ml 03/05/20 10:39 03/05/20 11:50 Gastrografin 37% PO 03/05/20 10:40 45 ml ONETIME ONE Administration Famotidine 20 mg 03/05/20 10:40 03/05/20 10:57 Pepcid IVPUSH 03/05/20 10:41 20 mg ONETIME ONE Administration Hydromorphone HCl 0.5 mg 03/05/20 10:32 03/05/20 11:02 Dilaudid IVPUSH 03/05/20 10:33 0.5 mg ONETIME ONE Administration Sodium Chloride 1,000 mls @ 1,000 mls/hr 03/05/20 10:31 03/05/20 10:56 Normal Saline IV 03/05/20 11:30 1,000 mls/hr .BOLUS STA Administration Iopamidol 100 ml 03/05/20 10:39 03/05/20 11:50 Isovue-300 (61%) IVPUSH 03/05/20 10:40 100 ml ONETIME ONE Administration Ondansetron HCl 4 mg 03/05/20 10:31 12/04/20 11:00 Zofran IVPUSH 03/05/20 10:32 4 mg ONETIME ONE Administration - Re-Assessments/Exams Free Text/Narrative Re-Assessment/Exam: 03/05/20 10:58 I ordered an IV 500ml bolus, zofran 4mg IV, dilaudid 0.5mgm IV, pepcid 20mg IV, labs, UA and a CT of her abdomen and pelvis. 03/05/20 12:36 Her CBC and CMP look good. Her CT shows nothing acute is appreciated on CT study of the abdomen and pelvis. She feels a little better. I feel this may be gastritis and this could be related to the gabapentin she just started. I will have her stop that and take some pepcid for a week. Departure - Departure Time of Disposition: 12:40 Disposition: Home, Self-Care 01 Condition: Good Clinical Impression: Abdominal pain Qualifiers: Abdominal location: epigastric Qualified Code(s): R10.13 - Epigastric pain - Discharge Information *PRESCRIPTION DRUG MONITORING PROGRAM REVIEWED*: Not Applicable *COPY OF PRESCRIPTION DRUG MONITORING REPORT IN PATIENT RANDELL: Not Applicable Referrals: Dawson Ta MD [Primary Care Provider] - 1 Week Forms: ED Department Discharge Additional Instructions: Stop the gabapentin. Take pepcid daily for a week. Please return if you are worse. Sepsis Event Note (ED) - Evaluation Sepsis Screening Result: No Definite Risk - Focused Exam Vital Signs: Vital Signs Temp Pulse Resp BP Pulse Ox 03/05/20 10:18 96.9 F 82 16 136/103 H 93 L - My Orders Last 24 Hours: My Active Orders 03/05/20 10:31 Sodium Chloride 0.9% [Saline Flush] 10 ml FLUSH ASDIRECTED PRN ED Antiemetic Medication Reflex [OM.PC] Stat Peripheral IV Insertion Adult [OM.PC] Stat 03/05/20 10:32 Peripheral IV Care [RC] . DIRECTED 03/05/20 10:39 Sodium Chloride 0.9% [Saline Flush] 10 ml FLUSH ONETIME PRN - Assessment/Plan Last 24 Hours: My Active Orders 03/05/20 10:31 Sodium Chloride 0.9% [Saline Flush] 10 ml FLUSH ASDIRECTED PRN ED Antiemetic Medication Reflex [OM.PC] Stat Peripheral IV Insertion Adult [OM.PC] Stat 03/05/20 10:32 Peripheral IV Care [RC] . DIRECTED 03/05/20 10:39 Sodium Chloride 0.9% [Saline Flush] 10 ml FLUSH ONETIME PRN
[2020-03-05] MEDS ORDERED: Sodium Chloride 0.9% 1,000 ML IV STA (10:31)
[2020-03-05] MEDS ORDERED: Ondansetron 4 MG/2 ML SDV IVPUSH ONE (10:31)
[2020-03-05] MEDS ORDERED: Sodium Chloride 0.9% 10 ML Syringe FLUSH PRN ×2 (10:31→10:39)
[2020-03-05] MEDS ORDERED: HYDROmorphone 0.5 MG/0.5 ML Syringe IVPUSH ONE (10:32)
[2020-03-05] MEDS ORDERED: Iopamidol 612 MG/ML 100 ML Bottle IVPUSH ONE (10:39)
[2020-03-05] MEDS ORDERED: Diatrizoate Meglumine/Diatrizoate Sodium 37% 120 ML Bottle PO ONE (10:39)
[2020-03-05] MEDS ORDERED: Famotidine 20 MG/2 ML SDV IVPUSH ONE (10:40)
--- NOTE | 2020-03-05 12:21 | CT ---
CT abdomen and pelvis Technique: Multiple axial images were obtained from above the dome of the diaphragm inferiorly through the pubic symphysis. Intravenous and oral contrast was utilized. Delayed images were obtained to the bladder. Reconstructed coronal and sagittal images were obtained. Comparison: Prior CT abdomen and pelvis study of 04/24/17. Findings: Lower lungs: No discrete abnormality is appreciated. Liver and spleen: No discrete abnormality is appreciated. Adrenal glands: No adrenal nodule is seen. Pancreas: No pancreatic mass is appreciated. Kidneys: Kidneys show symmetric contrast enhancement. Delayed images shows contrast within the distal ureters and within the bladder. Aorta and retroperitoneum. Aorta shows atherosclerotic calcification without aneurysm. No retroperitoneal adenopathy is seen. Omentum: No discrete omental abnormalities are seen. Scattered surgical clips are seen outside the abdominal wall. Pelvis: Minimal diverticulosis is seen. No free fluid or inflammatory change is seen. Appendix: Not visualized. Bowel: Prior stomach surgery is seen which is stable from prior exam. Osseous: Previous surgery seen within the lower lumbar spine with scoliosis. Left hip prosthesis is noted. No acute osseous finding is appreciated. Impression: 1. Findings as noted above. 2. Nothing acute is appreciated on CT study of the abdomen and pelvis. Diagnostic code #2
== END 2020-03-05 13:00 | disposition home or self-care (01) ==
LOC: JD.ED 09:50
DX: R10.13 Epigastric pain (principal); I10 Essential (primary) hypertension; E11.9 Type 2 diabetes mellitus without complications; F41.9 Anxiety disorder, unspecified; F32.9 Major depressive disorder, single episode, unspecified; Z79.899 Other long term (current) drug therapy; Z88.2 Allergy status to sulfonamides
CPT/HCPCS: 36415; 74177; 74177-26; 80053; 83690; 85025; 96374; 96375; 99284; 99284-25; J1170; J2405; J3490; J7030; Q9963; Q9967

== ENCOUNTER 2020-06-19 10:22 | Emergency (ER) | payer MEDICARE, BC ==
[2020-06-19] MEDS ORDERED: Sodium Chloride 0.9% 10 ML Syringe FLUSH PRN (10:48)
[2020-06-19] MEDS ORDERED: Sodium Chloride 0.9% 1,000 ML IV SCH (11:00)
--- NOTE | 2020-06-19 11:28 | EDM.PDOC ---
ED HPI GENERAL MEDICAL PROBLEM - General Chief Complaint: Genitourinary Problem Stated Complaint: WEAK/FATIGUE/CHEST TIGHTNESS Time Seen by Provider: 06/19/20 10:35 Source of Information: Reports: Patient History Limitations: Reports: No Limitations - History of Present Illness INITIAL COMMENTS - FREE TEXT/NARRATIVE: The patient presents with generalized weakness and chest tightness. This has been going on for about 2 weeks. The chest tightness has come and gone and not for very long. She also says her urine is concentrated and has a bad odor. She denies dysuria or hematuria. She has no fever, chills, cough, shortness of breath, nausea or vomiting. She did have some upper abdominal pain with the chest tightness. This has happened to her before and she took some prilosec and it help. Onset: Gradual Duration: Week(s): (2) Location: Reports: Chest Quality: Reports: Other (tightness) Severity: Mild Improves with: Reports: None Worsens with: Reports: None Associated Symptoms: Reports: Chest Pain. Denies: Cough, Fever/Chills, Headaches, Nausea/Vomiting, Shortness of Breath - Related Data Allergies Allergy/AdvReac Type Severity Reaction Status Date / Time Sulfa (Sulfonamide Allergy Swelling Verified 06/19/20 10:32 Antibiotics) Home Meds: Home Meds DULoxetine HCl [Cymbalta] 120 mg PO DAILY 05/21/15 [History] QUEtiapine Fumarate [Quetiapine Fumarate] 100 mg PO BEDTIME 05/21/15 [History] ClonazePAM [KlonoPIN] 1 mg PO BEDTIME 08/13/15 [History] Potassium Chloride [Klor-Con 10] 10 meq PO DAILY 02/07/17 [History] Multivitamin/Iron/Folic Acid [Centrum Adults Tablet] 1 tab PO DAILY 08/08/18 [History] Ascorbic Acid [Vitamin C] 1 tab PO DAILY 06/19/20 [History] Aspirin 81 mg PO DAILY 06/19/20 [History] Docusate Sodium 100 mg PO DAILY 06/19/20 [History] Folic Acid 800 mcg PO DAILY 06/19/20 [History] Furosemide 20 mg PO DAILY 06/19/20 [History] Magnesium Oxide [Magnesium] 400 mg PO DAILY 06/19/20 [History] Psyllium Husk [Psyllium Fiber] 1 cap PO DAILY 06/19/20 [History] traMADol [Ultram] 50 - 100 mg PO Q6H PRN #20 tab 06/19/20 [Rx] Past Medical History HEENT History: Reports: Impaired Vision Other HEENT History: wears glasses, dentures Cardiovascular History: Reports: Hypertension, SOB on Exertion Respiratory History: Reports: Other (See Below) Other Respiratory History: dypsnea Gastrointestinal History: Reports: Chronic Constipation, GERD, PUD, Other (See Below) Other Gastrointestinal History: GI ulcers Genitourinary History: Reports: Retention, Urinary Other Genitourinary History: incomplete emptying of bladder, nocturia, urgency, UTI [employer] History: Reports: Other (See Below) Other [employer] History: R breast biopsy, hot flashes Musculoskeletal History: Reports: Back Pain, Chronic, Other (See Below) Other Musculoskeletal History: rotator cuff repair, L leg pain, knee pain, hip pain, brachiplasty, arthritis, gluteal tendinopathy, trochanteric bursitis, osteopenia, back surgery with rods left total hip replacement January 31 Neurological History: Reports: Headaches, Chronic Psychiatric History: Reports: Anxiety, Depression, Panic Attack Other Psychiatric History: fatigue Endocrine/Metabolic History: Reports: Osteopenia Other Endocrine/Metabolic History: type 2 diabetes resolved with gastric bypass Hematologic History: Reports: Blood Transfusion(s) Immunologic History: Reports: None Oncologic (Cancer) History: Reports: None Dermatologic History: Reports: None - Infectious Disease History Infectious Disease History: Reports: None - Past Surgical History HEENT Surgical History: Reports: Cataract Surgery, Tonsillectomy Cardiovascular Surgical History: Reports: None Respiratory Surgical History: Reports: None GI Surgical History: Reports: Appendectomy, Bariatric Procedure, Cholecystectomy Female Surgical History: Reports: D&C, Hysterectomy, Tubal Ligation Endocrine Surgical History: Reports: None Neurological Surgical History: Reports: Lumbar Spine Musculoskeletal Surgical History: Reports: Hip Replacement, Knee Replacement, Shoulder Surgery Oncologic Surgical History: Reports: Biopsy of Breast Social & Family History - Family History Family Medical History: No Pertinent Family History Cardiac: Reports: Bypass Respiratory: Reports: Sleep Apnea Psychiatric: Reports: Depression Endocrine/Metabolic: Reports: Diabetes, type II Oncologic: Reports: Bone, Colon, Lung, Ovarian, Other (See Below) Other Oncologic Family History: mother had colon, ovarian and and bone throat c ancer; father had bone cancer and lung - Tobacco Use Tobacco Use Status *Q: Never Tobacco User Second Hand Smoke Exposure: No - Caffeine Use Caffeine Use: Reports: Coffee - Recreational Drug Use Recreational Drug Use: No - Living Situation & Occupation Living situation: Reports: , with Spouse Occupation: Retired ED ROS GENERAL - Review of Systems Review Of Systems: See Below Constitutional: Reports: Weakness, Fatigue. Denies: Fever, Chills HEENT: Reports: No Symptoms Respiratory: Reports: No Symptoms Cardiovascular: Reports: Chest Pain Endocrine: Reports: No Symptoms GI/Abdominal: Reports: No Symptoms : Denies: Dysuria Musculoskeletal: Reports: No Symptoms Skin: Reports: No Symptoms ED EXAM, GI/ABD - Physical Exam Exam: See Below Exam Limited By: No Limitations General Appearance: Alert, No Apparent Distress Ears: Normal External Exam Nose: Normal Inspection Throat/Mouth: Normal Inspection Head: Atraumatic, Normocephalic Neck: Normal Inspection Respiratory/Chest: No Respiratory Distress, Lungs Clear, Normal Breath Sounds Cardiovascular: Regular Rate, Rhythm, No Edema, No Murmur GI/Abdominal Exam: Soft, Non-Tender, No Organomegaly, No Mass Back Exam: Normal Inspection Extremities: Normal Inspection #1 Interpretation EKG Date: 06/19/20 Time: 11:05 Rhythm: NSR Rate (Beats/Min): 89 [place]: Normal P-Wave: Present QRS: Normal ST-T: Normal QT: Normal Course - Vital Signs Last Recorded V/S: Last Vital Signs Temp 97.0 F 06/19/20 10:39 Pulse 9 L 06/19/20 10:39 Resp 18 06/19/20 10:39 BP 131/70 06/19/20 10:39 Pulse Ox 96 06/19/20 10:39 - Orders/Labs/Meds Orders: Active Orders 24 hr Category Date Time Status Cardiac Monitoring [RC] . DIRECTED Care 06/19/20 10:48 Active EKG Documentation Completion [RC] STAT Care 06/19/20 10:49 Active Peripheral IV Care [RC] . DIRECTED Care 06/19/20 10:48 Active Chest 1V Frontal [CR] Stat Exams 06/19/20 10:49 Taken Sodium Chloride 0.9% [Normal Saline] 1,000 ml Med 06/19/20 11:00 Active IV ASDIRECTED Sodium Chloride 0.9% [Saline Flush] Med 06/19/20 10:48 Active 10 ml FLUSH ASDIRECTED PRN Peripheral IV Insertion Adult [OM.PC] Stat Oth 06/19/20 10:48 Ordered Medication Orders Sodium Chloride (Normal Saline) 1,000 mls @ 125 mls/hr IV ASDIRECTED SORAYA Last Admin: 06/19/20 10:58 Dose: 125 mls/hr Documented by: SULAIMAN Sodium Chloride (Sodium Chloride 0.9% 10 Ml Syringe) 10 ml FLUSH ASDIRECTED PRN PRN Reason: Keep Vein Open Last Admin: 06/19/20 10:58 Dose: 10 ml Documented by: SULAIMAN Labs: Laboratory Tests 06/19/20 06/19/20 06/19/20 Range/Units 10:40 10:40 10:40 WBC 7.35 (3.98-10.04) K/mm3 RBC 4.40 (3.98-5.22) M/mm3 Hgb 14.0 (11.2-15.7) gm/dl Hct 43.0 (34.1-44.9) % MCV 97.7 H (79.4-94.8) fl MCH 31.8 (25.6-32.2) pg MCHC 32.6 (32.2-35.5) g/dl RDW Std Deviation 47.8 H (36.4-46.3) fL Plt Count 253 (182-369) K/mm3 MPV 11.1 (9.4-12.3) fl Neut % (Auto) 58.2 (34.0-71.1) % Lymph % (Auto) 27.8 (19.3-51.7) % [place] % (Auto) 9.3 (4.7-12.5) % Eos % (Auto) 3.9 (0.7-5.8) Baso % (Auto) 0.5 (0.1-1.2) % Neut # (Auto) 4.28 (1.56-6.13) K/mm3 Lymph # (Auto) 2.04 (1.18-3.74) K/mm3 Graves # (Auto) 0.68 H (0.24-0.36) K/mm3 Eos # (Auto) 0.29 (0.04-0.36) K/mm3 Baso # (Auto) 0.04 (0.01-0.08) K/mm3 Manual Slide Review Normal smear Sodium 144 (136-145) mEq/L Potassium 4.8 (3.5-5.1) mEq/L Chloride 105 (98-107) mEq/L Carbon Dioxide 26 (21-32) mEq/L Anion Gap 17.8 H (5-15) BUN 21 H (7-18) mg/dL Creatinine 0.8 (0.55-1.02) mg/dL Est Cr Clr Drug Dosing 42.97 mL/min Estimated GFR (MDRD) > 60 (>60) mL/min BUN/Creatinine Ratio 26.3 H (14-18) Glucose 111 (83-115) mg/dL Calcium 9.7 (8.5-10.1) mg/dL Magnesium 2.2 (1.8-2.4) mg/dl Total Bilirubin 0.4 (0.2-1.0) mg/dL AST 58 H (15-37) U/L ALT 45 (14-59) U/L Alkaline Phosphatase 99 (46-116) U/L Troponin I < 0.017 (0.00-0.056) ng/mL Total Protein 7.5 (6.4-8.2) g/dl Albumin 3.6 (3.4-5.0) g/dl Globulin 3.9 gm/dL Albumin/Globulin Ratio 0.9 L (1-2) TSH 3rd Generation (0.358-3.74) uIU/mL Urine Color Yellow (Yellow) Urine Appearance Clear (Clear) Urine pH 6.0 (5.0-8.0) Ur Specific [place] 1.020 (1.005-1.030) Urine Protein Negative (Negative) Urine Glucose (UA) Negative (Negative) Urine Ketones Negative (Negative) Urine Occult Blood Negative (Negative) Urine Nitrite Negative (Negative) Urine Bilirubin Negative (Negative) Urine Urobilinogen 0.2 (0.2-1.0) Ur Leukocyte Esterase Negative (Negative) Urine RBC 0-5 (0-5) /hpf Urine WBC 0-5 (0-5) /hpf Ur Epithelial Cells 0-5 (0-5) /hpf Urine Bacteria Few (FEW) /hpf Urine Mucus Not seen (FEW) /hpf SARS-CoV-2 RNA (BIRDIE) (NEGATIVE) 03/20/21 03/20/21 Range/Units 10:50 10:53 WBC (3.98-10.04) K/mm3 RBC (3.98-5.22) M/mm3 Hgb (11.2-15.7) gm/dl Hct (34.1-44.9) % MCV (79.4-94.8) fl MCH (25.6-32.2) pg MCHC (32.2-35.5) g/dl RDW Std Deviation (36.4-46.3) fL Plt Count (182-369) K/mm3 MPV (9.4-12.3) fl Neut % (Auto) (34.0-71.1) % Lymph % (Auto) (19.3-51.7) % [place] % (Auto) (4.7-12.5) % Eos % (Auto) (0.7-5.8) Baso % (Auto) (0.1-1.2) % Neut # (Auto) (1.56-6.13) K/mm3 Lymph # (Auto) (1.18-3.74) K/mm3 [place] # (Auto) (0.24-0.36) K/mm3 Eos # (Auto) (0.04-0.36) K/mm3 Baso # (Auto) (0.01-0.08) K/mm3 Manual Slide Review Sodium (136-145) mEq/L Potassium (3.5-5.1) mEq/L Chloride (98-107) mEq/L Carbon Dioxide (21-32) mEq/L Anion Gap (5-15) BUN (7-18) mg/dL Creatinine (0.55-1.02) mg/dL Est Cr Clr Drug Dosing mL/min Estimated GFR (MDRD) (>60) mL/min BUN/Creatinine Ratio (14-18) Glucose (83-115) mg/dL Calcium (8.5-10.1) mg/dL Magnesium (1.8-2.4) mg/dl Total Bilirubin (0.2-1.0) mg/dL AST (15-37) U/L ALT (14-59) U/L Alkaline Phosphatase (46-116) U/L Troponin I (0.00-0.056) ng/mL Total Protein (6.4-8.2) g/dl Albumin (3.4-5.0) g/dl Globulin gm/dL Albumin/Globulin Ratio (1-2) TSH 3rd Generation 1.564 (0.358-3.74) uIU/mL Urine Color (Yellow) Urine Appearance (Clear) Urine pH (5.0-8.0) Ur Specific [place] (1.005-1.030) Urine Protein (Negative) Urine Glucose (UA) (Negative) Urine Ketones (Negative) Urine Occult Blood (Negative) Urine Nitrite (Negative) Urine Bilirubin (Negative) Urine Urobilinogen (0.2-1.0) Ur Leukocyte Esterase (Negative) Urine RBC (0-5) /hpf Urine WBC (0-5) /hpf Ur Epithelial Cells (0-5) /hpf Urine Bacteria (FEW) /hpf Urine Mucus (FEW) /hpf SARS-CoV-2 RNA (BIRDIE) Negative (NEGATIVE) Meds: Medications Generic Name Dose Route Start Last Admin Trade Name Freq PRN Reason Stop Dose Admin Sodium Chloride 1,000 mls @ 125 mls/hr 06/19/20 11:00 06/19/20 10:58 Normal Saline IV 125 mls/hr ASDIRECTED SORAYA Administration Sodium Chloride 10 ml 06/19/20 10:48 06/19/20 10:58 Sodium Chloride 0.9% 10 Ml Syringe FLUSH 10 ml ASDIRECTED PRN Administration Keep Vein Open - Re-Assessments/Exams Free Text/Narrative Re-Assessment/Exam: 06/19/20 11:29 I ordered an IV NS at 125mL/hr, EKG, CXR, labs, COVID 19 and UA. Her EKG shows a NSR with no acute changes. Her CXR looks good. 06/19/20 12:08 Her CBC and CMP look good. Her troponin is negative. Her troponin is negative. Her TSH and COVID 19 are negative. She says she has trouble sleeping due to back pain. She was supposed to get a nerve stimulator this week but she had to postpone due to her family having an auction sale. She says the pain is just keeping her up. I will get her some ultram to help with the pain. Departure - Departure Time of Disposition: 12:15 Disposition: Home, Self-Care 01 Condition: Good Clinical Impression: Generalized weakness Low back pain Qualifiers: Chronicity: chronic Back pain laterality: midline Sciatica presence: without sciatica Qualified Code(s): M54.5 - Low back pain; G89.29 - Other chronic pain - Discharge Information *PRESCRIPTION DRUG MONITORING PROGRAM REVIEWED*: Not Applicable *COPY OF PRESCRIPTION DRUG MONITORING REPORT IN PATIENT RANDELL: Not Applicable Prescriptions: traMADol [Ultram] 50 - 100 mg PO Q6H PRN #20 tab PRN Reason: Pain Referrals: Dawson Ta MD [Primary Care Provider] - 1 Week Forms: ED Department Discharge Additional Instructions: Take your medication as prescribed. Try the ultram 50 to 100mg by mouth every 6 hours as needed for pain. Follow up with Dr Ta this week. Please return if you are worse. Sepsis Event Note (ED) - Evaluation Sepsis Screening Result: No Definite Risk - Focused Exam Vital Signs: Vital Signs Temp Pulse Resp BP Pulse Ox 06/19/20 10:39 97.0 F 9 L 18 131/70 96 06/19/20 10:37 98.0 F 94 18 131/70 97 - My Orders Last 24 Hours: My Active Orders 06/19/20 10:48 Cardiac Monitoring [RC] . DIRECTED Peripheral IV Care [RC] . DIRECTED Sodium Chloride 0.9% [Saline Flush] 10 ml FLUSH ASDIRECTED PRN Peripheral IV Insertion Adult [OM.PC] Stat 06/19/20 10:49 EKG Documentation Completion [RC] STAT Chest 1V Frontal [CR] Stat 06/19/20 11:00 Sodium Chloride 0.9% [Normal Saline] 1,000 ml IV ASDIRECTED - Assessment/Plan Last 24 Hours: My Active Orders 06/19/20 10:48 Cardiac Monitoring [RC] . DIRECTED Peripheral IV Care [RC] . DIRECTED Sodium Chloride 0.9% [Saline Flush] 10 ml FLUSH ASDIRECTED PRN Peripheral IV Insertion Adult [OM.PC] Stat 06/19/20 10:49 EKG Documentation Completion [RC] STAT Chest 1V Frontal [CR] Stat 06/19/20 11:00 Sodium Chloride 0.9% [Normal Saline] 1,000 ml IV ASDIRECTED
[2020-06-19 12:27] VITALS: BP 132/73; PULSE 81
--- NOTE | 2020-06-20 09:43 | CR ---
Chest: Portable view of the chest was obtained. Comparison: Prior chest x-ray of 03/02/19. Heart size and mediastinum are normal. Lungs are clear with no acute parenchymal change. Previous surgery is noted within the right shoulder. Impression: 1. Findings as noted above. 2. Nothing acute is seen. Diagnostic code #2
== END 2020-06-19 12:27 | disposition home or self-care (01) ==
LOC: JD.ED 10:22
DX: G89.29 Other chronic pain (principal); M54.5 Low back pain; R53.1 Weakness; R07.89 Other chest pain; R30.0 Dysuria; I10 Essential (primary) hypertension; E11.9 Type 2 diabetes mellitus without complications; Z88.2 Allergy status to sulfonamides; Z79.82 Long term (current) use of aspirin; Z79.899 Other long term (current) drug therapy; Z20.822 Contact with and (suspected) exposure to COVID-19
CPT/HCPCS: 36415; 71045; 80053; 81001; 83735; 84443; 84484; 85025; 93005; 99285; J7030; U0002; 93010; 99284

== ENCOUNTER 2021-08-09 13:09 | Emergency (ER) | payer MEDICARE, BC ==
[2021-08-09] MEDS ORDERED: Iopamidol 755 Mg/ML 100 ML Bottle IVPUSH ONE (14:40)
[2021-08-09] MEDS ORDERED: Sodium Chloride 0.9% 10 ML Syringe IARTIC ONE (14:40)
[2021-08-09] MEDS ORDERED: Sodium Chloride 0.9% 10 ML Syringe FLUSH PRN (14:42)
[2021-08-09] MEDS ORDERED: Sodium Chloride 0.9% 100 ML IV SCH (14:45)
[2021-08-09] MEDS ORDERED: Acetaminophen 325 MG Tab PO ONE (16:19)
[2021-08-09] MEDS: Nitroglycerin 0.4 MG Tab.SL SL PRN ×3 (16:29→17:26)
[2021-08-09] MEDS ORDERED: Nitroglycerin/D5W 25 MG/250 ML BOTTLE IV SCH (17:45)
[2021-08-09] MEDS ORDERED: Aspirin 81 MG Tab.Chew PO ONE (18:07)
[2021-08-09 18:52] VITALS: BP 109/73; PULSE 78
== END 2021-08-09 18:50 ==
LOC: JD.ED 13:09
DX: I20.0 Unstable angina (principal); I10 Essential (primary) hypertension; E11.9 Type 2 diabetes mellitus without complications; K21.9 Gastro-esophageal reflux disease without esophagitis; Z88.2 Allergy status to sulfonamides; Z79.82 Long term (current) use of aspirin
CPT/HCPCS: 36415; 71045; 71275; 80053; 84484; 85025; 85379; 85610; 93005; 96365; 99285; A9270; J3490; Q9967; 93010

== ENCOUNTER 2022-07-27 07:13 | Day surgery (SDC) | payer MEDICARE, OTHER ==
[~2022-07-27 07:13] MED LIST: Lactated Ringers 1,000 ML IV SCH; Lidocaine 1%/Sod Bicarbonate in NS 8.4% 1 ML Syringe IDERM PRN; Sodium Chloride 0.9% 10 ML Syringe FLUSH PRN; Sodium Chloride 0.9% 10 ML Syringe FLUSH SCH
[2022-07-27] MEDS ORDERED: Propofol 200 MG/20 ML SDV ONE (08:30)
[2022-07-27 10:35] VITALS: PULSE 84
[2022-07-27 10:36] VITALS: BP 114/79
== END 2022-07-27 10:48 | disposition home or self-care (01) ==
LOC: JD.SDS 07:13
PROVIDERS: ATTEND Surgery
DX: Z12.11 Encounter for screening for malignant neoplasm of colon (principal); K21.9 Gastro-esophageal reflux disease without esophagitis; D12.0 Benign neoplasm of cecum; F41.9 Anxiety disorder, unspecified; K66.0 Peritoneal adhesions (postprocedural) (postinfection); I50.9 Heart failure, unspecified; I11.0 Hypertensive heart disease with heart failure; F32.A Depression, unspecified; E78.5 Hyperlipidemia, unspecified; E11.9 Type 2 diabetes mellitus without complications; M81.0 Age-related osteoporosis without current pathological fracture; F41.0 Panic disorder [episodic paroxysmal anxiety]; K57.30 Diverticulosis of large intestine without perforation or abscess without bleeding; K59.00 Constipation, unspecified; Z80.0 Family history of malignant neoplasm of digestive organs; Z88.8 Allergy status to other drugs, medicaments and biological substances; Z79.899 Other long term (current) drug therapy; Z90.49 Acquired absence of other specified parts of digestive tract; Z98.84 Bariatric surgery status; Z90.89 Acquired absence of other organs; Z90.710 Acquired absence of both cervix and uterus
CPT/HCPCS: 45380; J2704; J7120; 00812

== ENCOUNTER 2023-04-11 09:57 | Emergency (ER) | payer BC, MEDICARE, OTHER ==
[2023-04-11] MEDS ORDERED: Sodium Chloride 0.9% 1,000 ML IV ONE (11:07)
[2023-04-11 11:36] LABS: BASOPHILS PERCENT AUTO 0.5 % (0.0-1.0); EOSINOPHILS ABSOLUTE AUTO 0.1 K/mm3 (0.0-0.4); EOSINOPHILS PERCENT AUTO 1.6 % (0.0-6.0); HEMOGLOBIN 14.4 gm/dl (12.0-16.0); IMMATURE GRAN ABSOLUTE AUTO 0.03 K/mm3 (0.00-0.05); IMMATURE GRAN PERCENT AUTO 0.5 % (0.0-0.4); LYMPHOCYTES ABSOLUTE AUTO 2.1 K/mm3 (1.0-4.8); MEAN CORPUSCULAR HEMOGLOBIN 31.6 pg (28.0-32.0); MEAN CORPUSCULAR HGB CONC 32.7 g/dl (32.0-36.0); MEAN CORPUSCULAR VOLUME 96.7 fl (83.0-99.0); MEAN PLATELET VOLUME 9.6 fl (9.4-12.3); MONOCYTES ABSOLUTE AUTO 0.5 K/mm3 (0.0-0.8); MONOCYTES PERCENT AUTO 8.2 % (0.0-8.0); NEUTROPHILS ABSOLUTE AUTO 3.6 K/mm3 (1.8-7.7); NEUTROPHILS PERCENT AUTO 56.2 % (41.0-71.0); PLATELET COUNT,PLT 235 K/mm3 (150-400); RED BLOOD CELL COUNT 4.55 M/mm3 (4.10-5.30); WHITE BLOOD CELL COUNT,WBC 6.36 K/mm3 (3.9-11.3)
[2023-04-11 11:37] LABS: APPEARANCE,URINE CLEAR (Clear); BILIRUBIN,URINE NEGATIVE (Negative); COLOR,URINE YELLOW (Yellow); GLUCOSE,URINE NEGATIVE (Negative); KETONES,URINE NEGATIVE (Negative); LEUKOCYTE ESTERASE,URINE NEGATIVE (Negative); NITRITE,URINE NEGATIVE (Negative); OCCULT BLOOD,URINE NEGATIVE (Negative); PROTEIN,URINE NEGATIVE (Negative); UROBILINOGEN,URINE 0.2 (0.2-1.0)
[2023-04-11] MEDS: Sodium Chloride 0.9% 10 ML Syringe FLUSH PRN ×2 (11:55→12:38)
[2023-04-11 12:03] LABS: ALBUMIN 3.7 g/dl (3.4-5.0); BILIRUBIN TOTAL 0.3 mg/dL (0.2-1.0); BUN/CREATININE RATIO 23.3 (14-18); C-REACTIVE PROTEIN 0.3 mg/dL (<1.0); CALCIUM 8.6 mg/dL (8.5-10.1); CREATININE 0.9 mg/dL (0.55-1.02); EST CRCL DRUG DOSING (CG) 36.41 mL/min; PROTEIN TOTAL,TP 7.5 g/dl (6.4-8.2)
[2023-04-11] MEDS ORDERED: Iopamidol 612 MG/ML 100 ML Bottle IVPUSH ONE (12:37)
[2023-04-11] MEDS ORDERED: Sodium Chloride 0.9% 10 ML Syringe FLUSH ONE (12:37)
[2023-04-11 13:00] LABS: BACTERIA,URINE RARE /hpf (FEW); EPITHELIAL CELLS,URINE 0-5 /hpf (0-5); MUCUS,URINE NOT SEEN /hpf (FEW); RBC,URINE 0-5 /hpf (0-5); WBC,URINE 0-5 /hpf (0-5)
[2023-04-11 14:01] VITALS: BP 140/73; PULSE 86
== END 2023-04-11 14:15 | disposition home or self-care (01) ==
LOC: JD.ED 09:57
DX: R10.13 Epigastric pain (principal); I10 Essential (primary) hypertension; K21.9 Gastro-esophageal reflux disease without esophagitis
CPT/HCPCS: 36415; 71046; 74177; 80053; 81001; 83690; 85025; 86140; 96360; 99284; J3490; J7030; Q9967

== ENCOUNTER 2023-09-23 09:39 | Emergency (ER) | payer MEDICARE ==
[2023-09-23 11:18] LABS: APPEARANCE,URINE SLT CLOUDY (Clear); BILIRUBIN,URINE NEGATIVE (Negative); COLOR,URINE YELLOW (Yellow); GLUCOSE,URINE NEGATIVE (Negative); KETONES,URINE NEGATIVE (Negative); LEUKOCYTE ESTERASE,URINE 2+ (Negative); NITRITE,URINE POSITIVE (Negative); OCCULT BLOOD,URINE NEGATIVE (Negative); PROTEIN,URINE NEGATIVE (Negative)
[2023-09-23 11:47] LABS: BACTERIA,URINE MANY /hpf (FEW); MUCUS,URINE NOT SEEN /hpf (FEW); SQUAMOUS EPITHELIAL CELLS,UR 0-5 /hpf (0-5); WBC,URINE 75-100 /hpf (0-5)
[2023-09-23 12:22] VITALS: PULSE 82
[2023-09-23 12:23] VITALS: BP 136/74
== END 2023-09-23 12:21 | disposition home or self-care (01) ==
LOC: JD.ED 09:39
DX: N30.00 Acute cystitis without hematuria (principal); I10 Essential (primary) hypertension; K21.9 Gastro-esophageal reflux disease without esophagitis; Z88.8 Allergy status to other drugs, medicaments and biological substances; Z79.899 Other long term (current) drug therapy; Z90.49 Acquired absence of other specified parts of digestive tract; Z90.710 Acquired absence of both cervix and uterus; Z86.16 Personal history of COVID-19
CPT/HCPCS: 81001; 87086; 87088; 87186; 99283; 99284

== ENCOUNTER 2023-11-20 09:26 | Day surgery (SDC) | payer MEDICARE ==
[~2023-11-20 09:26] MED LIST changes: +HYDROmorphone 0.5 MG/0.5 ML Syringe IVPUSH PRN; -Lactated Ringers 1,000 ML IV SCH; -Lidocaine 1%/Sod Bicarbonate in NS 8.4% 1 ML Syringe IDERM PRN; +Ondansetron 4 MG/2 ML SDV IVPUSH PRN; +fentaNYL 100 MCG/2 ML SDV IVPUSH PRN
[2023-11-20] MEDS: Lactated Ringers 1,000 ML IV SCH (09:35)
[2023-11-20] MEDS ORDERED: Propofol 200 MG/20 ML SDV ONE ×2 (10:56→11:18)
[2023-11-20] MEDS ORDERED: Lidocaine 1% 8 ML ONE (11:18)
[2023-11-20 12:31] VITALS: BP 127/68; PULSE 84
== END 2023-11-20 12:20 | disposition home or self-care (01) ==
LOC: JD.SDS 09:26
PROVIDERS: ATTEND Surgery
DX: R13.10 Dysphagia, unspecified (principal); I11.0 Hypertensive heart disease with heart failure; I50.9 Heart failure, unspecified; G47.00 Insomnia, unspecified; E11.9 Type 2 diabetes mellitus without complications; Z98.0 Intestinal bypass and anastomosis status; Z88.8 Allergy status to other drugs, medicaments and biological substances; Z79.899 Other long term (current) drug therapy
CPT/HCPCS: 43249; J2704; J7120; J3490

== ENCOUNTER 2025-02-03 12:37 | Emergency (ER) | payer MEDICARE ==
[2025-02-03 13:17] LABS: BASOPHILS ABSOLUTE AUTO 0.1 K/mm3 (0.0-0.2); BASOPHILS PERCENT AUTO 0.8 % (0.0-1.0); EOSINOPHILS ABSOLUTE AUTO 0.0 K/mm3 (0.0-0.4); EOSINOPHILS PERCENT AUTO 0.4 % (0.0-6.0); IMMATURE GRAN ABSOLUTE AUTO 0.02 K/mm3 (0.00-0.05); IMMATURE GRAN PERCENT AUTO 0.3 % (0.0-0.4); LYMPHOCYTES ABSOLUTE AUTO 2.1 K/mm3 (1.0-4.8); LYMPHOCYTES PERCENT AUTO 29.2 % (24.0-44.0); MEAN PLATELET VOLUME 9.7 fl (9.4-12.3); MONOCYTES ABSOLUTE AUTO 0.5 K/mm3 (0.0-0.8); MONOCYTES PERCENT AUTO 7.2 % (0.0-8.0); NEUTROPHILS ABSOLUTE AUTO 4.4 K/mm3 (1.8-7.7); NEUTROPHILS PERCENT AUTO 62.1 % (41.0-71.0); NRBC ABSOLUTE 0.00 (0.00-0.02); NRBC PERCENT 0.0 % (0.0-0.2); PLATELET COUNT,PLT 270 K/mm3 (150-400); RED BLOOD CELL COUNT 4.36 M/mm3 (4.10-5.30); WHITE BLOOD CELL COUNT,WBC 7.12 K/mm3 (3.9-11.3)
[2025-02-03 13:44] LABS: A/G RATIO 1.1 (1-2); ALANINE AMINOTRANSFERASE,ALT 26 U/L (14-59); ASPARTATE AMNIOTRANSFERASE,AST 26 U/L (15-37); BILIRUBIN TOTAL 0.3 mg/dL (0.2-1.0); BLOOD UREA NITROGEN,BUN 13 mg/dL (7-18); CARBON DIOXIDE,CO2 29 mEq/L (21-32); CHLORIDE,CL 106 mEq/L (98-107); CREATININE 0.7 mg/dL (0.55-1.02); ESTIMATED GFR 87 mL/min (>60); GLUCOSE RANDOM 121 mg/dL (70-99); POTASSIUM,K 3.8 mEq/L (3.5-5.1); PROTEIN TOTAL,TP 7.3 g/dl (6.4-8.2); SODIUM,NA 143 mEq/L (136-145); TROPONIN I HIGH SENSITIVITY 6 pg/mL (<=51)
[2025-02-03] MEDS: Sodium Chloride 0.9% 10 ML Syringe FLUSH PRN (14:09)
[2025-02-03 14:10] LABS: APPEARANCE,URINE CLEAR (Clear); GLUCOSE,URINE NEGATIVE (Negative); OCCULT BLOOD,URINE NEGATIVE (Negative)
[2025-02-03 14:24] LABS: SQUAMOUS EPITHELIAL CELLS,UR 0-5 /hpf (0-5)
[2025-02-03 15:29] VITALS: BP 149/82; PULSE 84
== END 2025-02-03 14:50 | disposition home or self-care (01) ==
LOC: JD.ED 12:37
DX: R07.89 Other chest pain (principal); I11.0 Hypertensive heart disease with heart failure; I50.9 Heart failure, unspecified; Z86.16 Personal history of COVID-19; Z88.8 Allergy status to other drugs, medicaments and biological substances; Z79.899 Other long term (current) drug therapy
CPT/HCPCS: 36415; 71045; 80053; 81001; 83880; 84484; 85025; 93005; 99285; A9270